=== PATIENT | female | born 1955 | race Two or more races ===

== ENCOUNTER 2020-01-22 19:15 | Emergency (ER) | payer OTHER ==
[~2020-01-22] VITALS: Ht 160 cm; Wt 127.0 kg
[2020-01-22 20:16] LABS: Basophils # (auto) 0 10 ^3/uL (0-0.2); Basophils % (auto) 0.3 % (0.0-2.0); Eosinophils # (auto) 0.1 10 ^3/uL (0-0.8); Eosinophils % (auto) 0.9 % (0.0-7.0); Hematocrit 40.1 % (36.0-46.0); Hemoglobin 13.7 g/dL (12.2-16.2); Lymphocytes # (auto) 1.6 10 ^3/uL (0.4-5.4); Lymphocytes % (auto) 20.6 % (10.0-50.0); Mean Corpuscular Hemoglobin 31.2 pg (28.0-32.0); Mean Corpuscular Hgb Conc. 34.1 g/dL (32.0-36.0); Mean Corpuscular Volume 91.4 fL (80.0-100.0); Monocytes # (auto) 0.5 10 ^3/uL (0-1.3); Neutrophils # (auto) 5.6 10 ^3/uL (1.6-8.6); Neutrophils % (auto) 72.2 % (37.0-80.0); Platelet Count (auto) 151 10^3/uL (140-450); Red Blood Cells 4.39 10^6/uL (4.0-5.20); Red Cell Distribution Width 12.9 % (11.8-14.3); White Blood Cell 7.8 10^3/uL (4.4-10.8)
[2020-01-22 20:30] LABS: Calcium 8.9 mg/dL (8.5-10.1); INR 0.99 (0.9-1.15); Partial Thromboplastin Time 25.1 sec (23.0-31.2); Potassium 3.7 mmol/L (3.5-5.1)
[2020-01-22 20:37] LABS: Albumin 3.5 g/dL (3.4-5.0); BUN/Creatinine Ratio 13.3; Bilirubin, Total 0.6 mg/dL (0.2-1.0); Total Protein 6.7 g/dL (6.4-8.2)
[2020-01-23] MEDS ORDERED: MORPHINE SULFATE 4 MG/ML SYR/VIAL IV ONE (00:15)
[2020-01-23] MEDS ORDERED: ONDANSETRON HCL 4 MG/2 ML VIAL IV ONE (00:15)
[2020-01-23 01:55] VITALS: BP 120/61
== END 2020-01-23 02:37 | disposition short-term general hospital (02) ==
LOC: EDBD 19:15 → ER 19:15
DX: S72.141A Displaced intertrochanteric fracture of right femur, initial encounter for closed fracture (principal); M97.01XA Periprosthetic fracture around internal prosthetic right hip joint, initial encounter; E78.5 Hyperlipidemia, unspecified; I10 Essential (primary) hypertension; Z90.49 Acquired absence of other specified parts of digestive tract; Z91.81 History of falling; Z87.898 Personal history of other specified conditions; Z98.51 Tubal ligation status; W18.39XA Other fall on same level, initial encounter; Y93.89 Activity, other specified; Y92.89 Other specified places as the place of occurrence of the external cause; Y99.8 Other external cause status
CPT/HCPCS: 36415; 71045; 73502; 80053; 85025; 85610; 85730; 93005; 96374; 96375; 99285; J2270; J2405; J7030

== ENCOUNTER 2023-07-27 14:55 | Emergency (ER) | payer OTHER ==
[~2023-07-27] VITALS: Ht 157.5 cm; Wt 81.8 kg
[2023-07-27 16:00] LABS: Basophils # (auto) 0 10 ^3/uL (0-0.2); Basophils % (auto) 0.2 % (0.0-2.0); Eosinophils # (auto) 0 10 ^3/uL (0-0.8); Eosinophils % (auto) 0.2 % (0.0-7.0); Hemoglobin 12.5 g/dL (12.2-16.2); Lymphocytes # (auto) 1.2 10 ^3/uL (0.4-5.4); Lymphocytes % (auto) 7.4 % (10.0-50.0); Mean Corpuscular Hemoglobin 29.6 pg (28.0-32.0); Mean Corpuscular Hgb Conc. 33.8 g/dL (32.0-36.0); Mean Corpuscular Volume 87.5 fL (80.0-100.0); Monocytes % (auto) 6.1 % (0.0-12.0); Neutrophils # (auto) 14.1 10 ^3/uL (1.6-8.6); Neutrophils % (auto) 86.1 % (37.0-80.0); Nucleated Red Blood Cells % 0.1 %; Red Blood Cells 4.23 10^6/uL (4.0-5.20); Red Cell Distribution Width 14.1 % (11.8-14.3); White Blood Cell 16.4 10^3/uL (4.4-10.8)
[2023-07-27 16:18] LABS: INR 1.03 (0.9-1.15); Partial Thromboplastin Time 33.9 SEC (24.5-34.5); Prothrombin Time 10.8 sec (9.3-11.8)
[2023-07-27 16:24] LABS: Alanine Aminotransferase 16 U/L (7-40); Alkaline Phosphatase 94 U/L (46-116); Anion Gap 3 (5-15); Aspartate Aminotransferase 17 U/L (13-40); BUN/Creatinine Ratio 16.7 (10.0-20.0); Bilirubin, Total 0.5 mg/dL (0.2-1.0); Blood Urea Nitrogen 26 mg/dL (9-23); Calcium 9.5 mg/dL (8.7-10.4); Carbon Dioxide 26 mmol/L (20-30); Chloride 108 mmol/L (98-107); Glucose 92 mg/dL (74-106); Potassium 4.7 mmol/L (3.5-5.1); Sodium 137 mmol/L (136-145); Total Protein 6.7 g/dL (5.7-8.2)
[2023-07-27] MEDS ORDERED: AZIT-185 PO (19:34)
[2023-07-27 20:50] VITALS: BP 125/53; PULSE 98; RESP 18; TEMP 98.3; O2SAT 90
== END 2023-07-27 21:01 | disposition hospice, home (50) ==
LOC: EDUNIT# 14:55 → ER 14:55 → EDBD 14:55 → ER 21:01
DX: J98.4 Other disorders of lung (principal); J44.9 Chronic obstructive pulmonary disease, unspecified; I10 Essential (primary) hypertension; E78.5 Hyperlipidemia, unspecified; Z98.51 Tubal ligation status; Z90.710 Acquired absence of both cervix and uterus
CPT/HCPCS: 36415; 71045; 80053; 83880; 84484; 85025; 85610; 85730; 93005

== ENCOUNTER 2023-07-30 15:54 | Emergency (ER) | payer OTHER ==
[~2023-07-30] VITALS: Ht 162.6 cm; Wt 82.0 kg
[~2023-07-30 15:54] MED LIST: AZIT-185 PO
[2023-07-30] MEDS: ALBUTEROL SULF 2.5 MG/0.5ML(0.5%) NEB SOLN NEB ONE (16:47)
[2023-07-30] MEDS: IPRATROPIUM BROM 0.5 MG/2.5ML INH SOL NEB ONE (16:47)
[2023-07-30 17:02] LABS: Basophils # (auto) 0 10 ^3/uL (0-0.2); Basophils % (auto) 0.3 % (0.0-2.0); Eosinophils # (auto) 0 10 ^3/uL (0-0.8); Hemoglobin 12.9 g/dL (12.2-16.2); Lymphocytes % (auto) 5.8 % (10.0-50.0); Mean Corpuscular Hemoglobin 29.4 pg (28.0-32.0); Mean Corpuscular Volume 86.4 fL (80.0-100.0); Monocytes # (auto) 1.2 10 ^3/uL (0-1.3); Monocytes % (auto) 6.8 % (0.0-12.0); Neutrophils # (auto) 15.1 10 ^3/uL (1.6-8.6); Neutrophils % (auto) 87.1 % (37.0-80.0); Nucleated Red Blood Cells % 0.1 %; Red Blood Cells 4.39 10^6/uL (4.0-5.20); Red Cell Distribution Width 13.6 % (11.8-14.3); White Blood Cell 17.3 10^3/uL (4.4-10.8)
[2023-07-30 17:13] LABS: Chloride 103 mmol/L (98-107); Potassium 4.1 mmol/L (3.5-5.1); Sodium 136 mmol/L (136-145)
[2023-07-30 17:15] LABS: Anion Gap 11 (5-15); Calcium 9.3 mg/dL (8.5-10.1); Carbon Dioxide 22 mmol/L (20-30)
[2023-07-30 17:19] LABS: Blood Urea Nitrogen 36 mg/dL (9-23)
[2023-07-30 17:20] LABS: Glucose 116 mg/dL (74-106)
[2023-07-30] MEDS: DexAMETHasone SOD PHOS 10MG/1ML VIAL INJ IM ONE (21:47)
[2023-07-30] MEDS: cefTRIAXone 1GM/50ML D5W 50 ML IV ONE (21:57)
[2023-07-30] MEDS: AZITHROMYCIN 500MG/ 250ML 250 ML IV ONE (22:26)
[2023-07-31 03:04] VITALS: BP 133/59; PULSE 87; RESP 17; TEMP 98.9; O2SAT 95
== END 2023-07-31 03:29 | disposition short-term general hospital (02) ==
LOC: ER 15:54 → EDBD 15:54 → ER 07-31 03:29
DX: J18.9 Pneumonia, unspecified organism (principal); D72.829 Elevated white blood cell count, unspecified; N17.9 Acute kidney failure, unspecified; J44.9 Chronic obstructive pulmonary disease, unspecified; E78.5 Hyperlipidemia, unspecified; I10 Essential (primary) hypertension; Z90.49 Acquired absence of other specified parts of digestive tract; Z98.51 Tubal ligation status
CPT/HCPCS: 36415; 71045; 80048; 83605; 83880; 84484; 85025; 87040; 94640; 96365; 96367; 96372; 99285; J0456; J0696; J1100; J7644

== ENCOUNTER 2024-04-09 17:09 | Inpatient (IN) | payer OTHER ==
[~2024-04-09] VITALS: Ht 157.5 cm; Wt 68.0 kg
[2024-04-09 17:20] VITALS: PULSE 120; RESP 25; O2SAT 91
--- NOTE | 2024-04-09 17:28 | ED.PDOC ---
SOB-HPI HPI Comments HPI: Poor Historian. 68-year-old female presents to emergency department by ambulance from home for evaluation of weakness and respiratory distress. Patient has been having worsening shortness of breath since yesterday. Patient has history of COPD not on home O2. Per EMS, patient initial pulse ox was in the 80s at room air. Patient was slightly tachycardic with a stable blood pressure. Patient was then moved by EMS to be transported and became hypoxic in the 60s. She was placed on a CPAP. She was given a DuoNeb treatment in route. VITALS: T: HR:130 RR: O2: BP:138/72 SOCIAL HX: DENIES TOBACCO USAGE, ETOH CONSUMPTION, OR ILLICIT DRUG USE SHX: DENIES ANY PMHX: LIVER TRANSPLANT, HLD, COPD, Lupus, and GERD ALLERGIES: NKA REVIEW OF SYSTEMS: CONSTITUTIONAL: Denies acute: fever, diaphoresis, chills, HEAD: Denies acute: headache, photophobia Eyes: Denies acute: Double vision, vision loss, eye pain, eye discharge. EARS: Denies acute: tinnitus, hearing loss, ear discharge, ear pain, THROAT: Denies acute: sore throat, swelling, difficulty swallowing , pain with swallowing, change in voice. NECK: Denies acute: neck pain, neck swelling, stiff neck. HEART: Denies acute : chest pain, palpitations, LUNGS: Denies acute: wheezing, cough, hemoptysis ABDOMEN: Denies acute: abdominal pain, Nausea, Vomiting, diarrhea, melena , hematemesis, hematochezia SKIN: Denies acute: rash, redness, lesions, itchiness. EXTREMITIES: Denies acute: calf pain, numbness, tingling, weakness, denies pain in extremity. Denies acute: Low back pain. Neuro: Denies acute: focal neurological deficit, motor or sensory focal neurological deficit, tremors, seizure like activity, confusion, dizziness, change in mental status, loss of bowel or bladder function, cauda equina like symptoms. : Denies acute: dysuria, hematuria, flank pain, increase in urinary frequency. PSYCH: Denies acute: hallucination, suicidal ideation, homicidal ideation. FEMALE: Denies acute: abnormal vaginal bleeding, foul odor, unusual discharge. PHYSICAL EXAM: General: Moderate acute distress, awake and alert. Head: normocephalic, atraumatic. Neck: supple, trachea is midline, no swelling. Throat: Normal phonation. Eyes:, no erythema, no purulent discharge, no proptosis, no icterus. Heart: regular tachycardic, no significant murmur appreciated. Lungs: Qnlx-ve-eviuafpz respiratory distress, Mild bilateral wheezing, right-sided rhonchi, no crackles. No stridors Abdomen: non tender to palpation, non distended, soft, no guarding, no rebound, + bowel sounds. Neuro: Awake, Alert, oriented to name, self, situation, follows commands GCS=15. Speech is normal. Skin: no petechia, no purpura, no cyanosis, non-pale, not jaundice. Lower extremities: --no - Pitting edema no deformity, no focal swelling, no calf TTP. Makes eye contact. moves all four extremities. Face: no apparent facial droop. Chief Complaint: Shortness of Breath Time Seen by MD: 17:24 Primary Care Provider: Unknown Reviewed notes: Nurses Notes, Quality Review Specialist Notes, Medications, Allergies Information Source: Patient, Emergency Med Personnel Mode of Arrival: EMS Severity: Moderate Timing: Days Duration: Since onset Context: At Rest PE Risk Factors: None History of: COPD, None Prehospital treatment: Other (ALBUTEROL, ATROVIN) Modifying Factors: Nothing Associated Signs and Symptoms: Other (WEAKNESS) Was a procedure done? Was a procedure done?: No X-Ray, Labs, Meds, VS Vital Signs Date Time Temp Pulse Resp B/P (MAP) Pulse Ox O2 Delivery O2 Flow Rate FiO2 04/09/24 18:49 122 29 119/50 (73) 92 04/09/24 18:17 122 28 113/47 (69) 95 04/09/24 18:02 121 04/09/24 17:45 98.1 130 18 138/72 (94) 90 04/09/24 17:38 24 98 Nasal Cannula* 2 28 04/09/24 17:20 120 25 91 Nasal Cannula* 4 36 04/09/24 17:18 98.1 120 26 102/34 (56) 92 98.1 Lab Test 04/09/24 18:18 04/09/24 17:39 Range/Units Troponin I High Sensitivity Pending 616 *H </=34 ng/L White Blood Count 29.8 H 4.4-10.8 10^3/uL Red Blood Count 4.57 4.0-5.20 10^6/uL Hemoglobin 13.2 12.2-16.2 g/dL Hematocrit 38.9 36.0-46.0 % Mean Corpuscular Volume 85.1 80.0-100.0 fL Mean Corpuscular Hemoglobin 28.9 28.0-32.0 pg Mean Corpuscular Hemoglobin Concent 34.0 32.0-36.0 g/dL Red Cell Distribution Width 13.6 11.8-14.3 % Platelet Count 178 140-450 10^3/uL Mean Platelet Volume 9.6 6.9-10.8 fL Neutrophils (%) (Auto) 94.1 H 37.0-80.0 % Lymphocytes (%) (Auto) 1.6 L 10.0-50.0 % Monocytes (%) (Auto) 4.3 0.0-12.0 % Eosinophils (%) (Auto) 0.0 0.0-7.0 % Basophils (%) (Auto) 0.0 0.0-2.0 % Neutrophils # (Auto) 28.0 H 1.6-8.6 10 ^3/uL Lymphocytes # (Auto) 0.5 0.4-5.4 10 ^3/uL Monocytes # (Auto) 1.3 0-1.3 10 ^3/uL Eosinophils # (Auto) 0 0-0.8 10 ^3/uL Basophils # (Auto) 0 0-0.2 10 ^3/uL Nucleated Red Blood Cells 0.0 % Sodium Level 135 L 136-145 mmol/L Potassium Level 3.2 L 3.5-5.1 mmol/L Chloride Level 103 98-107 mmol/L Carbon Dioxide Level 21 20-31 mmol/L Anion Gap 11 5-15 Blood Urea Nitrogen 65 H 9-23 mg/dL Creatinine 2.65 H 0.550-1.02 mg/dL Glomerular Filtration Rate Calc 19 >90 mL/min BUN/Creatinine Ratio 24.5 H 10.0-20.0 Serum Glucose 117 H 74-106 mg/dL Lactic Acid Level 1.9 0.4-2.0 mmol/L Calcium Level 9.5 8.7-10.4 mg/dL Magnesium Level 1.7 1.6-2.6 mg/dL Total Bilirubin 0.6 0.2-1.0 mg/dL Aspartate Amino Transferase (AST) 34 13-40 U/L Alanine Aminotransferase (ALT) 26 7-40 U/L Alkaline Phosphatase 96 46-116 U/L B-Type Natriuretic Peptide 236.37 0-100 pg/mL Total Protein 5.9 5.7-8.2 g/dL Albumin 3.1 L 3.2-4.8 g/dL Current Medications Medications (Trade) Dose Ordered Sig/Cuca Route Start Time Stop Time Status Last Admin Albuterol (Ventolin Medneb) 2.5 mg ONCE ONCE NEB 04/09/24 17:30 04/09/24 17:31 DC 04/09/24 17:37 Ipratropium [place] (Atrovent Medneb) 1 mg ONCE ONCE NEB 04/09/24 17:30 04/09/24 17:31 DC 04/09/24 17:38 Methylprednisolone Sodium Succinate (Solu Medrol) 125 mg ONCE ONCE IV 04/09/24 17:30 04/09/24 17:31 DC 04/09/24 18:05 Ceftriaxone Sodium 50 ml @ 100 mls/hr ONCE ONCE IV 04/09/24 17:30 04/09/24 17:59 DC 04/09/24 18:04 [place] [address] Ph: [phone] DIAGNOSTIC IMAGING Diagnostic Imaging Report : [id number] Signed PATIENT: OSKAR DRAPER ACCT: [id number] UNIT: [id number] : 1955 LOC: ER ROOM / BED: / AGE / SEX: 68 / F ADM STATUS: REG ER SERVICE 1722 ORDERING PHYSICIAN: GINO MANRIQUE DO PROCEDURE(s): CXRP - CHEST PORTABLE REASON: sob ORDER NUMBER(s): [id number], ACCESSION NUMBER(s): [id number] EXAM: XY CHEST PORTABLE TECHNIQUE: Single frontal chest radiograph CLINICAL HISTORY: sob COMPARISON: XY CHEST PORTABLE on DOS: 07/30/23, XY CHEST PORTABLE on DOS: 07/27/23, CHEST PORTABLE on DOS: 01/22/20 Findings/Impression: Frontal chest radiograph demonstrates no acute osseous or superficial soft tissue abnormalities. The trachea is midline. Cardiomegaly. Bibasilar atelectasis versus infection, right greater than left. No pneumothorax or pleural effusions. ATED BY: AFSANEH RUSH DO DICTATED DATE/TIME: 04/09/241826 SIGNED BY: AFSANEH RUSH DO SIGNED DATE/TIME: 04/09/241826 CC: Time of 1ST Reevaluation: 17:54 Reevaluation 1ST: Unchanged Time of 2ND Reevaluation: 19:12 (The case was discussed with the [facility] admitting team (HPI, physical exam, labs and diagnostic tests that were available at the time of disposition, ED course, treatment plan) on the phone. They they authorized us to admit the patient in our facility since the patient is tachycardic with an NSTEMI. Authorization number is [id number] Dr. Gonzalez. I also was able to get additional past medical history on this patient. She has history of CRESPO status post transplant 2010, COPD, asthma, interstitial lung disease, diastolic CHF, chronic kidney disease stage IIIB, crest syndrome, pulmonary hypertension, she is on Prograf. Earlier I ordered aspirin for the patient given her elevated troponin but she refused it saying that she has a liver transplant and she was told not to take aspirin.) Reevaluation 2ND: Improved Patient Education/Counseling: Diagnosis, Treatment Family Education/Counseling: No Family Present Comments Patient presented with SOB . Patient was found with the above mentioned diagnosis. the following medications were ordered: ALBUTEROL, ATROVENT, ROCEPHIN, DEPO- MEDRO the following tests were ordered: LABS, CXR, EKG X3 Patient ED course and VS have been stabilized. Patient has been reassessed in the ED and remained in a stable condition. Pertinent incidental findings were discussed with the patient and/or family. Patient/family voices understanding and is agreeable with plan. Patient has been observed in the ED adequate length of time to insure improvement/stability. Escalation of care considered: Consideration of escalation to observation or admission Patient was ADMITTED to the medicine team for further evaluation and treatment of their presentation. Patient was discharged. All the reports of any imaging studies that were ordered by myself were reviewed by myself. Departure 1 Departure Time of Disposition: 18:21 Impression: Primary Impression: Acute respiratory distress Additional Impressions: Pneumonia Leukocytosis Atrial fibrillation with RVR NSTEMI (non-ST elevated myocardial infarction) Disposition: ADMITTED INPATIENT Admit to: Tele Condition: Guarded Additional Instructions: [address] [address] Ph: [phone] DIAGNOSTIC IMAGING Diagnostic Imaging Report : [id number] Signed PATIENT: OSKAR DRAPER ACCT: [id number] UNIT: [id number] : 1955 LOC: ER ROOM / BED: / AGE / SEX: 68 / F ADM STATUS: REG ER SERVICE 172 ORDERING PHYSICIAN: GINO MANRIQUE DO PROCEDURE(s): CXRP - CHEST PORTABLE REASON: sob ORDER NUMBER(s): [id number], ACCESSION NUMBER(s): [id number] EXAM: XY CHEST PORTABLE TECHNIQUE: Single frontal chest radiograph CLINICAL HISTORY: sob COMPARISON: XY CHEST PORTABLE on DOS: 07/30/23, XY CHEST PORTABLE on DOS: 07/27/23, CHEST PORTABLE on DOS: 01/22/20 Findings/Impression: Frontal chest radiograph demonstrates no acute osseous or superficial soft tissue abnormalities. The trachea is midline. Cardiomegaly. Bibasilar atelectasis versus infection, right greater than left. No pneumothorax or pleural effusions. ATED BY: AFSANEH RUSH DO DICTATED DATE/TIME: 04/09/241826 SIGNED BY: AFSANEH RUSH DO SIGNED DATE/TIME: 04/09/241826 CC: Discharged With: Self Critical Care Note Critical Care Time?: No Heart Score Heart Score: Heart Score Response (Comments) Value History N/A 0 EKG N/A 0 Age N/A 0 Risk Factors N/A 0 Troponin N/A 0 Total 0 I personally scribed for GINO MANRIQUE DO ([email or web address]) on 04/09/24 at 17:28. Electronically submitted by Carolina Tavarez ([email or web address]). I personally scribed for GINO MANRIQUE DO ([email or web address]) on 04/09/24 at 18:58. Electronically submitted by Carolina Tavarez ([email or web address]). I personally scribed for GINO MANRIQUE DO ([email or web address]) on 04/09/24 at 19:03. Electronically submitted by Carolina Tavarez ([email or web address]). I personally scribed for GINO MANRIQUE DO ([email or web address]) on 04/09/24 at 19:07. Electronically submitted by Carolina Tavarez ([email or web address]). GINO MANRIQUE DO Apr 09, 2024 17:28
[2024-04-09] MEDS: ALBUTEROL SULF 2.5 MG/0.5ML(0.5%) NEB SOLN NEB ONE (17:37)
[2024-04-09] MEDS: IPRATROPIUM BROM 0.5 MG/2.5ML INH SOL NEB ONE (17:38)
[2024-04-09] MEDS: cefTRIAXone 1GM/50ML D5W 50 ML IV ONE (18:04)
[2024-04-09 18:05] LABS: Basophils # (auto) 0 10 ^3/uL (0-0.2); Eosinophils # (auto) 0 10 ^3/uL (0-0.8); Hematocrit 38.9 % (36.0-46.0); Hemoglobin 13.2 g/dL (12.2-16.2); Lymphocytes # (auto) 0.5 10 ^3/uL (0.4-5.4); Lymphocytes % (auto) 1.6 % (10.0-50.0); Mean Corpuscular Hemoglobin 28.9 pg (28.0-32.0); Mean Corpuscular Volume 85.1 fL (80.0-100.0); Monocytes # (auto) 1.3 10 ^3/uL (0-1.3); Monocytes % (auto) 4.3 % (0.0-12.0); Neutrophils % (auto) 94.1 % (37.0-80.0); Platelet Count (auto) 178 10^3/uL (140-450); Red Blood Cells 4.57 10^6/uL (4.0-5.20); Red Cell Distribution Width 13.6 % (11.8-14.3); White Blood Cell 29.8 10^3/uL (4.4-10.8)
[2024-04-09] MEDS: methylPREDNISolone SOD SUCC 125 MG/2 ML VL IV ONE (18:05)
[2024-04-09 18:21] LABS: Alanine Aminotransferase 26 U/L (7-40); Alkaline Phosphatase 96 U/L (46-116); Anion Gap 11 (5-15); Aspartate Aminotransferase 34 U/L (13-40); BUN/Creatinine Ratio 24.5 (10.0-20.0); Bilirubin, Total 0.6 mg/dL (0.2-1.0); Calcium 9.5 mg/dL (8.7-10.4); Carbon Dioxide 21 mmol/L (20-31); Chloride 103 mmol/L (98-107); Magnesium 1.7 mg/dL (1.6-2.6); Total Protein 5.9 g/dL (5.7-8.2)
[2024-04-09 18:22] LABS: Albumin 3.1 g/dL (3.2-4.8); Blood Urea Nitrogen 65 mg/dL (9-23); Glucose 117 mg/dL (74-106); Potassium 3.2 mmol/L (3.5-5.1); Sodium 135 mmol/L (136-145)
--- NOTE | 2024-04-09 18:30 | DVH ---
EXAM: XY CHEST PORTABLE TECHNIQUE: Single frontal chest radiograph CLINICAL HISTORY: sob COMPARISON: XY CHEST PORTABLE on DOS: 07/30/23, XY CHEST PORTABLE on DOS: 07/27/23, CHEST PORTABLE on D OS: 01/22/20 Findings/Impression: Frontal chest radiograph demonstrates no acute osseous or superficial soft tissue abnormalities. The trachea is midline. Cardiomegaly. Bibasilar atelectasis versus infection, right greater than left. No pneumothorax or pleural effusions.
--- NOTE | 2024-04-09 18:55 | ECG ---
[facility] Test Date: 2024-04-09 Test Time: 18:02:05 Pat Name: OSKAR DRAPER Department: ER Room: Gender: F Gatehouse Attendant: RADHA : 1955 Requested By: GINO MANRIQUE Order Number: [id number] Reading MD: Measurements Intervals [place] Rate: 121 P: 0 UT: 0 QRS: 96 QRSD: 90 T: -36 QT: 316 QTc: 449 Interpretive Statements Atrial fibrillation Right axis deviation Abnormal T, consider ischemia, inferior leads Please click the below link to view image of tracing.
--- NOTE | 2024-04-09 18:55 | ECG ---
[facility] Test Date: 2024-04-09 Test Time: 18:00:52 Pat Name: OSKAR DRAPER Department: ER Room: Gender: F Loan Inspector: RADHA : 1955 Requested By: GINO MANRIQUE Order Number: [id number] Reading MD: Measurements Intervals [place] Rate: 122 P: 0 TN: 0 QRS: 102 QRSD: 95 T: -37 QT: 315 QTc: 449 Interpretive Statements Atrial flutter Ventricular premature complex Lateral infarct, acute (LAD) Baseline wander in lead(s) V1 Please click the below link to view image of tracing.
[2024-04-09 19:40] VITALS: O2SAT 92
[2024-04-09] MEDS ORDERED: HYDROcodone-ACET 5/325MG TAB PO PRN (20:00)
[2024-04-09] MEDS ORDERED: ACETAMINOPHEN 325 MG TAB PO PRN (20:00)
[2024-04-09] MEDS ORDERED: DOCUSATE SOD 100 MG CAP PO PRN (20:00)
[2024-04-09] MEDS: AZITHROMYCIN 500MG/ 250ML 250 ML IV ONE (20:00)
[2024-04-09] MEDS: POTASSIUM CHL 20 Meq TABLET PO ONE (20:00)
[2024-04-09 20:08] VITALS: BP 119/50; PULSE 122; RESP 29; TEMP 98.1; O2SAT 92
[2024-04-09 20:12] VITALS: O2SAT 92
[2024-04-09] MEDS: HEPARIN SODIUM (PORCINE) 5000 UNITS/ML 1ML VIAL SC SCH (22:00)
[2024-04-09] MEDS: TACROLIMUS 1 MG CAP PO SCH (22:00)
[2024-04-09] MEDS: FAMOTIDINE (10MG/ML) 2ML VL IV SCH (22:00)
[2024-04-09] MEDS: SODIUM CHLOR 0.9% PF (SALINE LOCK) 10ML VIAL/SYR IV SCH (22:00)
[2024-04-09] MEDS: methylPREDNISolone SOD SUCC 40 MG/ML VL IV SCH (22:00)
--- NOTE | 2024-04-09 22:29 | DVHHP2 ---
History of Present Illness Reason for Visit: COPD with acute exacerbation History of Present Illness The patient is a 68-year-old female with past medical history of hyperlipidemia, COPD, lupus, GERD, and liver transplant currently on Prograf presented to [facility] ED with complaint of shortness of breaths. Patient reports symptoms progressively get worse with generalized weakness, hypoxic with O2 saturation in the 60s, tachypneic, getting worse that EMS were called. When EMS arrived on the scene, patient was placed on CPAP EN route to our facility ED. patient was seen and evaluated in the ED, laboratory data shows WBC 29.8, platelets 178, sodium 135, potassium 3.2, BUN 65, creatinine 2.65, GFR 19, glucose 117, lactic acid 1.9, BNP 236.37, troponin 588, albumin 3.1, blood pressure 102/63, heart rate 102, temperature 98.1 F, O2 saturation 98% on oxygen. Chest x-ray revealing bibasilar atelectasis versus infection, right greater than left, cardiomegaly, no pneumothorax or pleural effusions. Patient was started on IV antibiotic regimen azithromycin, please see medication orders section in the computer. On my assessment, patient denied chest pain, no headache, no dizziness, no diaphoresis, currently on oxygen, no diarrhea, no nausea, no vomiting, no fever, no chills. Patient was admitted for further evaluation and medical management. Past Medical History HLD, COPD, Lupus, and GERD Past Surgical History Liver transplant Family History Reviewed, noncontributory to the management of this case. Past Social History The patient lives at home, denies smoking, alcohol or illicit drugs abuse. Review of Systems Constitutional: Yes: Weakness; No: Fever, Chills, Sweats, Malaise, Other Eyes: No: Pain, Vision change, Conjunctivae inflammation, Eyelid inflammation, Other, Redness ENT: No: Ear pain, Ear discharge, Nose pain, Nose discharge, Nose congestion, Mouth pain, Mouth swelling, Throat pain, Throat swelling, Other Respiratory: Shortness of breath, SOB with excertion, Other (SOB at rest); No: Cough, Dry, Wheezing, Hemoptysis, Pleuritic Pain, Sputum, Wheezing Cardiovascular: No: Chest Pain, Palpitations, Orthopnea, Paroxysmal Noc. Dyspnea, Edema, Lt Headedness, Other Gastrointestinal: No: Nausea, Vomiting, Abdominal Pain, Diarrhea, Constipation, Melena, Hematochezia, Other Genitourinary: No Dysuria, No Frequency, No Incontinence, No Hematuria, No Retention, No Other Musculoskeletal: No: other, neck pain, shoulder pain, arm pain, back pain, hand pain, leg pain, foot pain Skin: No: Rash, Lesions, Jaundice, Bruising, Other Neurological: No: Weakness, Numbness, Incoordination, Change in speech, Confusion, Seizures, Other Allergies: Coded Allergies: NO KNOWN ALLERGIES (Unverified , 01/22/20) Medications Current Medications Medications Dose Ordered Sig/Cuca Route Start Time Stop Time Status Last Admin Dose Admin Ceftriaxone Sodium 50 ml @ 100 mls/hr DAILY@09 IV 04/10/24 09:00 Azithromycin 250 ml @ 125 mls/hr DAILY IV 04/10/24 10:00 Levalbuterol HCl 0.625 mg Q6HR NEB 04/10/24 00:00 Ipratropium [place] 0.5 mg Q4HPRN PRN NEB 04/09/24 20:00 Methylprednisolone Sodium Succinate 40 mg Q8HR IV 04/09/24 22:00 Famotidine 20 mg Q12HR IV 04/09/24 22:00 Tacrolimus 1 mg BID PO 04/09/24 22:00 Heparin Sodium (Porcine) 5,000 units Q12HR SC 04/09/24 22:00 Sodium Chloride 10 ml Q8HR IV 04/09/24 22:00 Acetaminophen/ Hydrocodone Bitart 1 tab Q4HP PRN PO 04/09/24 20:00 Ondansetron HCl 4 mg Q4HP PRN IV 04/09/24 20:00 Docusate Sodium 100 mg BIDPRN PRN PO 04/09/24 20:00 Acetaminophen 650 mg Q6HP PRN PO 04/09/24 20:00 Exam Vital Signs Vital Signs Date Time Temp Pulse Resp B/P (MAP) Pulse Ox O2 Delivery O2 Flow Rate FiO2 04/09/24 20:12 92 Nasal Cannula* 2 28 04/09/24 20:08 98.1 122 29 119/50 98.1 General Appearance: Alert, Oriented X3, Cooperative, No acute distress HEENT: Atraumatic, PERRLA, EOMI, Mucous membr. moist/pink Respiratory: Normal air movement, Other (Diminished breath sounds) Cardiovascular: Regular rate, Normal S1, Normal S2, No murmurs Abdominal: Normal bowel sounds, Soft, No tenderness, No hepatospenomegaly, No masses Extremities: No clubbing, No cyanosis, No edema, Normal pulses, No tenderness/swelling Skin: No rashes, No breakdown, No significant lesion Neuro: Normal speech, Normal tone, Sensation intact, Cranial nerves 3-12 NL, Reflexes 2+, Other (Generalized weakness) Psych/Mental Status: Mental status NL, Mood NL Labs/Xrays Labs Test 04/09/24 20:31 04/09/24 17:39 Range/Units Troponin I High Sensitivity 488 *H </=34 ng/L White Blood Count 29.8 H 4.4-10.8 10^3/uL Red Blood Count 4.57 4.0-5.20 10^6/uL Hemoglobin 13.2 12.2-16.2 g/dL Hematocrit 38.9 36.0-46.0 % Mean Corpuscular Volume 85.1 80.0-100.0 fL Mean Corpuscular Hemoglobin 28.9 28.0-32.0 pg Mean Corpuscular Hemoglobin Concent 34.0 32.0-36.0 g/dL Red Cell Distribution Width 13.6 11.8-14.3 % Platelet Count 178 140-450 10^3/uL Mean Platelet Volume 9.6 6.9-10.8 fL Neutrophils (%) (Auto) 94.1 H 37.0-80.0 % Lymphocytes (%) (Auto) 1.6 L 10.0-50.0 % Monocytes (%) (Auto) 4.3 0.0-12.0 % Eosinophils (%) (Auto) 0.0 0.0-7.0 % Basophils (%) (Auto) 0.0 0.0-2.0 % Neutrophils # (Auto) 28.0 H 1.6-8.6 10 ^3/uL Lymphocytes # (Auto) 0.5 0.4-5.4 10 ^3/uL Monocytes # (Auto) 1.3 0-1.3 10 ^3/uL Eosinophils # (Auto) 0 0-0.8 10 ^3/uL Basophils # (Auto) 0 0-0.2 10 ^3/uL Nucleated Red Blood Cells 0.0 % Sodium Level 135 L 136-145 mmol/L Potassium Level 3.2 L 3.5-5.1 mmol/L Chloride Level 103 98-107 mmol/L Carbon Dioxide Level 21 20-31 mmol/L Anion Gap 11 5-15 Blood Urea Nitrogen 65 H 9-23 mg/dL Creatinine 2.65 H 0.550-1.02 mg/dL Glomerular Filtration Rate Calc 19 >90 mL/min BUN/Creatinine Ratio 24.5 H 10.0-20.0 Serum Glucose 117 H 74-106 mg/dL Lactic Acid Level 1.9 0.4-2.0 mmol/L Calcium Level 9.5 8.7-10.4 mg/dL Magnesium Level 1.7 1.6-2.6 mg/dL Total Bilirubin 0.6 0.2-1.0 mg/dL Aspartate Amino Transferase (AST) 34 13-40 U/L Alanine Aminotransferase (ALT) 26 7-40 U/L Alkaline Phosphatase 96 46-116 U/L B-Type Natriuretic Peptide 236.37 0-100 pg/mL Total Protein 5.9 5.7-8.2 g/dL Albumin 3.1 L 3.2-4.8 g/dL PATIENT: OSKAR DRAPER ACCT: [id number] UNIT: [id number] : 1955 LOC: ER ROOM / BED: / AGE / SEX: 68 / F ADM STATUS: REG ER SERVICE 1722 ORDERING PHYSICIAN: GINO MANRIQUE DO PROCEDURE(s): CXRP - CHEST PORTABLE REASON: sob ORDER NUMBER(s): [id number], ACCESSION NUMBER(s): [id number] EXAM: XY CHEST PORTABLE TECHNIQUE: Single frontal chest radiograph CLINICAL HISTORY: sob COMPARISON: XY CHEST PORTABLE on DOS: 07/30/23, XY CHEST PORTABLE on DOS: 07/27/23, CHEST PORTABLE on DOS: 01/22/20 Findings/Impression: Frontal chest radiograph demonstrates no acute osseous or superficial soft tissue abnormalities. The trachea is midline. Cardiomegaly. Bibasilar atelectasis versus infection, right greater than left. No pneumothorax or pleural effusions. Assessment/Plan Assessment/Plan COPD with acute exacerbation Acute respiratory distress Pneumonia, unspecified organism Leukocytosis, unspecified Atrial fibrillation with RVR Generalized weakness Acute on chronic renal failure NSTEMI (non-ST elevated myocardial infarction) Plan 1. Admit to telemetry unit 2. Breathing treatment 3. Pain control management 4. IV antibiotic management 5. Management of fluids and electrolytes 6. Consultation for Cardiology/pulmonology 7. Diagnostic test chest x-ray 8. DVT prophylaxis-on heparin 9. Repeat labs CBC, CMP in a.m. 10. Home medication reviewed and reconciled 11. Continue with current medical management 12. Treatment plan discussed with patient and RN. Patient verbalized understanding. Plan discussed with: Patient, Other (RN) My Orders Orders - BERNIE DYE DNP Procedure Category Date Status Time Ceftriaxone 1gm/50ml PHA 04/10/24 In Process D5w (Rocephin) 09:00 Azithromycin 500mg/ PHA 04/10/24 In Process 250ml (Zithromax 50 10:00 Levalbuterol Hcl PHA 04/10/24 In Process (Xopenex Medneb) 00:00 Ipratropium Medneb PHA 04/09/24 In Process (Atrovent Medneb) 20:00 Methylprednisolone PHA 04/09/24 In Process Sod Succ (Solu Medrol 22:00 Famotidine Injection PHA 04/09/24 In Process (Pepcid Injection) 22:00 *Consult CONS 04/09/24 Transmitted / 19:46 Tacrolimus (Prograf) PHA 04/09/24 In Process 22:00 Heparin Sodium PHA 04/09/24 In Process (Porcine) 22:00 *Dr. [facility] CONS 04/09/24 Transmitted -[place] 19:46 * Cardiology Consult CONS 04/09/24 Transmitted 19:46 Troponin-I Hs LAB 04/09/24 Logged 22:46 Troponin-I Hs LAB 04/10/24 Verified 04:00 Allergies JOSI 04/09/24 In Process 19:46 Code Status CODE 04/09/24 Transmitted 19:46 Sodium Chloride Lock PHA 04/09/24 In Process (Saline Lock Ns) 22:00 Oxygen Per Hour RT 04/09/24 Transmitted 19:46 Hydrocodone-Acet PHA 04/09/24 In Process 5/325mg Tab ([place] 20:00 Ondansetron Hcl PHA 04/09/24 In Process (Zofran) 20:00 Docusate Sodium PHA 04/09/24 In Process Capsule ([place] 20:00 Fall Risk Precautions JOSI 04/09/[address] 19:46 Complete Blood Count LAB 04/10/24 Verified 04:00 Comprehensive LAB 04/10/24 Verified Metabolic Panel 04:00 Cardiac DIET 04/10/24 Transmitted Diet-2gna,Lofat,Lochol Breakfast Echo 2d Mode Cardiac US 04/09/24 Logged DOP 19:46 Condition: Serious JOSI 04/09/24 In Process 19:46 Acetaminophen Tablet PHA 04/09/24 In Process (Tylenol Tablet) 20:00 Sequential JOSI 04/09/24 In Process Compression Device Admit ADMIT 04/09/24 Verified 22:28 Nitroglycerin [facility] 04/09/24 Verified Sublingual (Ntrostat 22:30 Morphine Sulfate [facility] 04/09/24 Verified Injection 22:30 Notify Of Changes [facility] 04/09/24 Verified From Base 22:28 Credit Analysis Manager For [facility] 04/09/24 Verified 24 Hours 22:28 Emergency Dysrhythmia [facility] 04/09/24 Verified Protocol 22:28 Rhythm Strips Once [facility] 04/09/24 Verified Every Shift 22:28 Oxygen By Nasal RT 04/09/24 Verified Cannula 22:28 Problem List: (1) COPD with acute exacerbation (2) Pneumonia, unspecified organism (3) Leukocytosis, unspecified (4) Atrial fibrillation with RVR (5) Acute respiratory distress (6) NSTEMI (non-ST elevated myocardial infarction) (7) Generalized weakness (8) Acute on chronic renal failure Date of Service: Apr 09, 2024 Billing Provider: BERNIE DYE DNP Common Visit Codes: [id number] INP/OBS CARE (HIGH) BERNIE DYE DNP Apr 09, 2024 22:29
[2024-04-09] MEDS ORDERED: NITROGLYCERIN 0.4 MG SL TAB SL PRN (22:30)
[2024-04-09] MEDS: MORPHINE SULFATE INJ 2 MG/ml SYRG IV PRN (23:25)
[2024-04-09] MEDS: ONDANSETRON HCL 4 MG/2 ML VIAL IV PRN (23:26)
[2024-04-09 23:42] VITALS: PULSE 112; RESP 16; O2SAT 96
[2024-04-09] MEDS: IPRATROPIUM BROM 0.5 MG/2.5ML INH SOL NEB PRN (23:46)
[2024-04-09] MEDS: LEVALBUTEROL HCL 1.25 MG/3 ML NEB NEB SCH (23:46)
[2024-04-09 23:52] VITALS: PULSE 110; RESP 16; O2SAT 100
[2024-04-09] MEDS: TACROLIMUS 1 MG CAP PO ONE (23:56)
[2024-04-09] MEDS: TACROLIMUS 0.5 MG CAP PO ONE (23:56)
[2024-04-10 04:50] LABS: Hematocrit 36.3 % (36.0-46.0); Hemoglobin 12.4 g/dL (12.2-16.2); Mean Corpuscular Hemoglobin 29.1 pg (28.0-32.0); Mean Corpuscular Hgb Conc. 34.2 g/dL (32.0-36.0); Mean Corpuscular Volume 85.3 fL (80.0-100.0); Platelet Count (auto) 158 10^3/uL (140-450); Red Blood Cells 4.26 10^6/uL (4.0-5.20); Red Cell Distribution Width 13.8 % (11.8-14.3); White Blood Cell 21.6 10^3/uL (4.4-10.8)
[2024-04-10 05:01] LABS: Basophils % (manual) 0 (0.0-2.0); Blast Cells 0; Eosinophils % (manual) 0 (0-7); Metamyelocytes % 0; Monocytes % (manual) 0 (0-12); Myelocytes % 0; Promyelocytes % 0; Reactive Lymphocytes 0
[2024-04-10 05:08] LABS: Alanine Aminotransferase 26 U/L (7-40); Albumin 3.3 g/dL (3.2-4.8); Alkaline Phosphatase 106 U/L (46-116); Anion Gap 10 (5-15); Aspartate Aminotransferase 36 U/L (13-40); BUN/Creatinine Ratio 26.3 (10.0-20.0); Bilirubin, Total 0.4 mg/dL (0.2-1.0); Calcium 10.2 mg/dL (8.7-10.4); Carbon Dioxide 22 mmol/L (20-31); Chloride 102 mmol/L (98-107); Potassium 3.6 mmol/L (3.5-5.1); Total Protein 6.6 g/dL (5.7-8.2)
[2024-04-10 05:12] LABS: Blood Urea Nitrogen 66 mg/dL (9-23); Glucose 161 mg/dL (74-106); Sodium 134 mmol/L (136-145)
[2024-04-10 06:16] LABS: Band Neutrophils % (manual) 23; Lymphocytes % (manual) 3 (10.0-50.0); Platelet Estimate Adequate; RBC Morphology Normal
[2024-04-10 06:22] VITALS: PULSE 99; RESP 19; O2SAT 97
[2024-04-10 06:30] VITALS: PULSE 102; RESP 16; O2SAT 100
--- NOTE | 2024-04-10 08:12 | DVHINCON2 ---
Date of service: Apr 10, 2024 Reason for Consultation Acute kidney injury History of Present Illness 68-year-old female past medical history of COPD and liver transplant on immunosuppression presents to the hospital complaining of progressive shortness of breath, fevers, chills, and productive sputum. Nephrology consulted due to elevated creatinine level. Patient denies any previous history of kidney disease Allergies: Coded Allergies: NO KNOWN ALLERGIES (Unverified , 01/22/20) Home Meds Active Scripts Azithromycin (ZITHROMAX TABLET) 250 Mg Tb, 500 MG PO BID for 7 Days, #28 TAB Prov:ALICIA BARRY MD 07/27/23 Current Medications Current Medications Medications (Trade) Dose Ordered Sig/Cuca Route PRN Reason Start Time Stop Time Status Last Admin Ceftriaxone Sodium 50 ml @ 100 mls/hr DAILY@09 IV 04/10/24 09:00 Azithromycin 250 ml @ 125 mls/hr DAILY IV 04/10/24 10:00 Levalbuterol HCl (Xopenex Medneb) 0.625 mg Q6HR NEB 04/10/24 00:00 04/10/24 06:22 Ipratropium [place] (Atrovent Medneb) 0.5 mg Q4HPRN PRN NEB SHORTNESS OF BREATH 04/09/24 20:00 04/10/24 06:22 Methylprednisolone Sodium Succinate (Solu Medrol) 40 mg Q8HR IV 04/09/24 22:00 04/10/24 06:00 Famotidine (Pepcid Injection) 20 mg Q12HR IV 04/09/24 22:00 04/09/24 22:00 Tacrolimus (Prograf) 1 mg BID PO 04/09/24 22:00 Heparin Sodium (Porcine) 5,000 units Q12HR SC 04/09/24 22:00 04/09/24 22:00 Sodium Chloride (Saline Lock Ns) 10 ml Q8HR IV 04/09/24 22:00 04/10/24 06:00 Acetaminophen/ Hydrocodone Bitart ([place] 5/325MG Tab) 1 tab Q4HP PRN PO MODERATE PAIN (4-6 PAIN SCALE) 04/09/24 20:00 Ondansetron HCl (Zofran) 4 mg Q4HP PRN IV NAUSEA / VOMITING 04/09/24 20:00 04/09/24 23:26 Docusate Sodium (Colace Capsule) 100 mg BIDPRN PRN PO FOR CONSTIPATION 04/09/24 20:00 Acetaminophen (Tylenol Tablet) 650 mg Q6HP PRN PO PAIN SCALE 1-3 OR TEMP>100.4 04/09/24 20:00 Nitroglycerin (Ntrostat Sublingual) 0.4 mg Q5MINP PRN SL FOR CHEST PAIN 04/09/24 22:30 Morphine Sulfate 2 mg Q30M PRN IV FOR CHEST PAIN 04/09/24 22:30 04/09/24 23:25 Sodium Chloride 1,000 ml @ 75 mls/hr [id number] IV 04/10/24 09:45 Review of Systems Shortness of breath, cough, sputum H&P Exam Vital Signs/I&O Vital Sign Date Time Temp Pulse Resp B/P (MAP) Pulse Ox O2 Delivery O2 Flow Rate FiO2 04/10/24 09:56 93 16 95/45 (62) 93 04/10/24 08:54 Nasal Cannula* 2 28 04/09/24 20:08 98.1 98.1 Intake and Output 04/09/24 04/10/24 19:00 07:00 Intake Total 50 ml 250 ml Balance 50 ml 250 ml Intake IV Total 50 ml 250 ml Physical Exam Elderly female Appears in distress complaining of illness and rigors Abdomen is soft No pitting edema Decreased muscle tone Expiratory wheezes Labs/Diagnostic Data Labs/Diagnostic Data Laboratory Tests Test 04/10/24 04:20 04/09/24 22:40 04/09/24 20:31 04/09/24 18:18 Range/Units White Blood Count 21.6 #H 4.4-10.8 10^3/uL Red Blood Count 4.26 4.0-5.20 10^6/uL Hemoglobin 12.4 12.2-16.2 g/dL Hematocrit 36.3 36.0-46.0 % Mean Corpuscular Volume 85.3 80.0-100.0 fL Mean Corpuscular Hemoglobin 29.1 28.0-32.0 pg Mean Corpuscular Hemoglobin Concent 34.2 32.0-36.0 g/dL Red Cell Distribution Width 13.8 11.8-14.3 % Platelet Count 158 140-450 10^3/uL Mean Platelet Volume 9.6 6.9-10.8 fL Neutrophils (%) (Auto) 37.0-80.0 % Lymphocytes (%) (Auto) 10.0-50.0 % Monocytes (%) (Auto) 0.0-12.0 % Basophils (%) (Auto) 0.0-2.0 % Neutrophils # (Auto) 1.6-8.6 10 ^3/uL Lymphocytes # (Auto) 0.4-5.4 10 ^3/uL Monocytes # (Auto) 0-1.3 10 ^3/uL Differential Total Cells Counted 100.0 100 Neutrophils % (Manual) 74 37.0-80.0 Band Neutrophils % (Manual) 23 Lymphocytes % (Manual) 3 L 10.0-50.0 Monocytes % (Manual) 0 0-12 Eosinophils % (Manual) 0 0-7 Basophils % (Manual) 0 0.0-2.0 Metamyelocytes % (manual) 0 Myelocytes % (Manual) 0 Promyelocytes % (Manual) 0 Blast Cells % (Manual) 0 Reactive Lymphocytes 0 Platelet Estimate Adequate Red Blood Cell Morphology Normal Sodium Level 134 L 136-145 mmol/L Potassium Level 3.6 3.5-5.1 mmol/L Chloride Level 102 98-107 mmol/L Carbon Dioxide Level 22 20-31 mmol/L Anion Gap 10 5-15 Blood Urea Nitrogen 66 H 9-23 mg/dL Creatinine 2.51 H 0.550-1.02 mg/dL Glomerular Filtration Rate Calc 20 >90 mL/min BUN/Creatinine Ratio 26.3 H 10.0-20.0 Serum Glucose 161 H 74-106 mg/dL Calcium Level 10.2 8.7-10.4 mg/dL Total Bilirubin 0.4 0.2-1.0 mg/dL Aspartate Amino Transferase (AST) 36 13-40 U/L Alanine Aminotransferase (ALT) 26 7-40 U/L Alkaline Phosphatase 106 46-116 U/L Troponin I High Sensitivity 367 *H 490 *H 488 *H 588 *H </=34 ng/L Total Protein 6.6 5.7-8.2 g/dL Albumin 3.3 3.2-4.8 g/dL Test 04/09/24 17:39 Range/Units White Blood Count 29.8 H 4.4-10.8 10^3/uL Red Blood Count 4.57 4.0-5.20 10^6/uL Hemoglobin 13.2 12.2-16.2 g/dL Hematocrit 38.9 36.0-46.0 % Mean Corpuscular Volume 85.1 80.0-100.0 fL Mean Corpuscular Hemoglobin 28.9 28.0-32.0 pg Mean Corpuscular Hemoglobin Concent 34.0 32.0-36.0 g/dL Red Cell Distribution Width 13.6 11.8-14.3 % Platelet Count 178 140-450 10^3/uL Mean Platelet Volume 9.6 6.9-10.8 fL Neutrophils (%) (Auto) 94.1 H 37.0-80.0 % Lymphocytes (%) (Auto) 1.6 L 10.0-50.0 % Monocytes (%) (Auto) 4.3 0.0-12.0 % Eosinophils (%) (Auto) 0.0 0.0-7.0 % Basophils (%) (Auto) 0.0 0.0-2.0 % Neutrophils # (Auto) 28.0 H 1.6-8.6 10 ^3/uL Lymphocytes # (Auto) 0.5 0.4-5.4 10 ^3/uL Monocytes # (Auto) 1.3 0-1.3 10 ^3/uL Eosinophils # (Auto) 0 0-0.8 10 ^3/uL Basophils # (Auto) 0 0-0.2 10 ^3/uL Nucleated Red Blood Cells 0.0 % Sodium Level 135 L 136-145 mmol/L Potassium Level 3.2 L 3.5-5.1 mmol/L Chloride Level 103 98-107 mmol/L Carbon Dioxide Level 21 20-31 mmol/L Anion Gap 11 5-15 Blood Urea Nitrogen 65 H 9-23 mg/dL Creatinine 2.65 H 0.550-1.02 mg/dL Glomerular Filtration Rate Calc 19 >90 mL/min BUN/Creatinine Ratio 24.5 H 10.0-20.0 Serum Glucose 117 H 74-106 mg/dL Lactic Acid Level 1.9 0.4-2.0 mmol/L Calcium Level 9.5 8.7-10.4 mg/dL Magnesium Level 1.7 1.6-2.6 mg/dL Total Bilirubin 0.6 0.2-1.0 mg/dL Aspartate Amino Transferase (AST) 34 13-40 U/L Alanine Aminotransferase (ALT) 26 7-40 U/L Alkaline Phosphatase 96 46-116 U/L Troponin I High Sensitivity 616 *H </=34 ng/L B-Type Natriuretic Peptide 236.37 0-100 pg/mL Total Protein 5.9 5.7-8.2 g/dL Albumin 3.1 L 3.2-4.8 g/dL Assessment Acute kidney injury hemodynamically mediated ckd 3b (GFR 30s in 07/2023) sepsis PNA COPD exacerbation History of liver transplantation on tacrolimus Clinically patient appears to be volume depleted Recommend IV fluid hydration Nebulizer treatments due to COPD IV antibiotics Patient resumed on home tacrolimus dose recommend trough level tomorrow a.m. Avoid hypotension Avoid nonsteroidal anti-inflammatory drugs Avoid contrast agents Send ordered urinalysis Plan discussed with: Patient MITZI RUIZ MD Apr 10, 2024 08:12
[2024-04-10 08:54] VITALS: PULSE 100; RESP 14; O2SAT 96
[2024-04-10] MEDS ORDERED: cefTRIAXone 1GM/50ML D5W 50 ML IV SCH (09:00)
--- NOTE | 2024-04-10 09:31 | DVHPNRES ---
Progress Note Date Seen: Apr 10, 2024 Resident Creating Document: JUDE WATSON RESIDENT Has the PT tested + for MRSA If YES, has PT been informed?: No Medical Necessity Reason Pt with a Central, PICC or Fol: No Subjective Patient reports: Feels better Changes from previous H/P or p: No Changes Objective vital signs Vital Sign Date Time Temp Pulse Resp B/P (MAP) Pulse Ox O2 Delivery O2 Flow Rate FiO2 04/10/24 08:54 100 14 96 Nasal Cannula* 2 28 04/10/24 07:40 108/62 (77) 04/09/24 20:08 98.1 98.1 Total Intake and Output 04/09/24 04/09/24 04/10/24 14:59 22:59 06:59 Intake Total 300 ml Balance 300 ml medications Current Medications Medications Dose Ordered Sig/Cuca Route Start Time Stop Time Status Last Admin Dose Admin Ceftriaxone Sodium 50 ml @ 100 mls/hr DAILY@09 IV 04/10/24 09:00 Azithromycin 250 ml @ 125 mls/hr DAILY IV 04/10/24 10:00 Levalbuterol HCl 0.625 mg Q6HR NEB 04/10/24 00:00 04/10/24 06:22 0.625 MG Ipratropium [place] 0.5 mg Q4HPRN PRN NEB 04/09/24 20:00 04/10/24 06:22 0.5 MG Methylprednisolone Sodium Succinate 40 mg Q8HR IV 04/09/24 22:00 04/10/24 06:00 40 MG Famotidine 20 mg Q12HR IV 04/09/24 22:00 04/09/24 22:00 20 MG Tacrolimus 1 mg BID PO 04/09/24 22:00 Heparin Sodium (Porcine) 5,000 units Q12HR SC 04/09/24 22:00 04/09/24 22:00 5,000 UNITS Sodium Chloride 10 ml Q8HR IV 04/09/24 22:00 04/10/24 06:00 10 ML Acetaminophen/ Hydrocodone Bitart 1 tab Q4HP PRN PO 04/09/24 20:00 Ondansetron HCl 4 mg Q4HP PRN IV 04/09/24 20:00 04/09/24 23:26 4 MG Docusate Sodium 100 mg BIDPRN PRN PO 04/09/24 20:00 Acetaminophen 650 mg Q6HP PRN PO 04/09/24 20:00 Nitroglycerin 0.4 mg Q5MINP PRN SL 04/09/24 22:30 Morphine Sulfate 2 mg Q30M PRN IV 04/09/24 22:30 04/09/24 23:25 2 MG Examination General Appearance: Cooperative. In no acute distress. Tremors present Head Exam: Normal inspection Neck Exam: Normal inspection. Non-tender. Normal alignment Pulmonary/Respiratory: Chest non-tender. Diminished bilateral breath sounds Cardiovascular/Chest: Regular rate and rhythm. S1, S2. NSR. No murmurs. No JVD. Peripheral Pulses: 2+ Radial (R). 2+ Radial (L). 2+ Pedal (R). 2+ Pedal (L) Abdominal Exam: Normal bowel sounds. Soft. Nontender. No hepatospenomegaly. No masses Ankle Exam: Negative ankle edema Lower extremities: Negative lower extremity edema Neuro/Mental Status: A&O x3. Coherent Thoughts/Psych: Normal thought pattern. Appropriate mood and affect. Appearance: In no acute distress Skin Exam: Normal inspection. Normal color. Warm. Dry laboratory and microbiology Laboratory Tests 04/10/24 04:20 Test 04/10/24 04:20 Range/Units Serum Glucose 161 H 74-106 mg/dL Labs and/or images reviewed: Labs reviewed by me, Image(s) reviewed by me Problem List/Assessment/Plan Problem List/Assessment/Plan Hospitalization summary/ Assesment: A 68-year-old female with hyperlipidemia, COPD, lupus, GERD, and a liver transplant presented to the ED with worsening shortness of breath, generalized weakness, and hypoxia (O2 saturation in the 60s). EMS placed her on CPAP en route to the hospital. Lab results showed elevated WBC (29.8), BUN (65), creatinine (2.65), and troponin (588). Chest x- ray revealed bibasilar atelectasis versus infection, cardiomegaly, but no pneumothorax or pleural effusions. She was started on IV azithromycin and admitted for further evaluation and management. She denies smoking, alcohol, or drug use and lives at home. Plan: # pneumonia Gram-positive Gram-negative : Right lower lobe likely: On cefepime, Unasyn, # Sepsis secondary due to above: # Bacteremia: With Gram-positive cocci/ Gram-negative rods. # COPD exacerbation: On levalbuterol, # known COPD likely secondary due to prolonged smoking history # acute on chronic hypoxic respiratory failure # CALVIN on CKD, due to VM in : Nephrology on board, IV hydration continue avoid nephrotoxic, check urinalysis # CKD stage III # type 2 NSTEMI likely demand mediated # nicotine dependence: Active smoker, 11 minute of smoking cessation counseling done. # Dyslipidemia: Home medications # lupus: Likely stable disease # History of liver transplant: secondary immunosuppression with tacrolimus on board. Trough pending. # atelectasis: Incentive spirometry to continue. Diet: cardiac diet GI prophylaxis: protonix 40mg/Famotidine 20/not needed DVT prophylaxis: heparin Bowel regimen: as needed Barriers to discharge: Medical diagnosis and managment in progress. [facility] To Ad[facility]: Cardiology, Nephrology,. Patient care and plan discussed with Dr. Swain Patient is overall unstable, septic and NOT stable for [facility] transfer. Will arrange transfer at earliest when patient is safe. Code status: Full code, goals of care discussion needed total 37 minutes. Plan discussed with: Patient, Other JUDE WATSON RESIDENT Apr 10, 2024 09:31
[2024-04-10] MEDS ORDERED: AZITHROMYCIN 500MG/ 250ML 250 ML IV SCH (10:00)
--- NOTE | 2024-04-10 10:34 | DVHINCON2 ---
Date Seen: Apr 10, 2024 Referring Physician BYRON Singleton Reason for Consultation NSTEMI History of Present Illness This is a 68-year-old female who presented to the emergency room via EMS with a chief complaint of shortness of breath x2 days. At time of assessment, the patient was somewhat a poor historian. Information obtained from records which indicate the patient was found by EMS with an oxygen saturation level of 67% on room air for which she was provided supplemental oxygenation via CPAP and duo- neb treatment with improved O2 saturations to 90%. Denies chest pain, palpitations, diaphoresis, or syncopal events. She underwent a 12-lead electrocardiogram revealing a sinus tachycardia rhythm (read as atrial fibrillation per ECG machine). Initial troponin level was found in the 600s ng/L now trending down. Past medical history includes COPD w/o home O2 and with current tobacco use, lupus, chronic kidney disease, and dyslipidemia. Past Medical History Past medical history reviewed. No other significant than mentioned above. Past Surgical History Liver transplant x2 on 2010 Cholecystectomy Family History Family history reviewed. Social History Denies the use of illicit drugs, alcohol, or tobacco use. Allergies: Coded Allergies: NO KNOWN ALLERGIES (Unverified , 01/22/20) Home Meds Active Scripts Azithromycin (ZITHROMAX TABLET) 250 Mg Tb, 500 MG PO BID for 7 Days, #28 TAB Prov:ALICIA BARRY MD 07/27/23 Home Meds Unable to retrieve home medications. Current Medications Current Medications Medications (Trade) Dose Ordered Sig/Cuca Route PRN Reason Start Time Stop Time Status Last Admin Ceftriaxone Sodium 50 ml @ 100 mls/hr DAILY@09 IV 04/10/24 09:00 Azithromycin 250 ml @ 125 mls/hr DAILY IV 04/10/24 10:00 Levalbuterol HCl (Xopenex Medneb) 0.625 mg Q6HR NEB 04/10/24 00:00 04/10/24 06:22 Ipratropium [place] (Atrovent Medneb) 0.5 mg Q4HPRN PRN NEB SHORTNESS OF BREATH 04/09/24 20:00 04/10/24 06:22 Methylprednisolone Sodium Succinate (Solu Medrol) 40 mg Q8HR IV 04/09/24 22:00 04/10/24 06:00 Famotidine (Pepcid Injection) 20 mg Q12HR IV 04/09/24 22:00 04/09/24 22:00 Tacrolimus (Prograf) 1 mg BID PO 04/09/24 22:00 Heparin Sodium (Porcine) 5,000 units Q12HR SC 04/09/24 22:00 04/09/24 22:00 Sodium Chloride (Saline Lock Ns) 10 ml Q8HR IV 04/09/24 22:00 04/10/24 06:00 Acetaminophen/ Hydrocodone Bitart ([place] 5/325MG Tab) 1 tab Q4HP PRN PO MODERATE PAIN (4-6 PAIN SCALE) 04/09/24 20:00 Ondansetron HCl (Zofran) 4 mg Q4HP PRN IV NAUSEA / VOMITING 04/09/24 20:00 04/09/24 23:26 Docusate Sodium (Colace Capsule) 100 mg BIDPRN PRN PO FOR CONSTIPATION 04/09/24 20:00 Acetaminophen (Tylenol Tablet) 650 mg Q6HP PRN PO PAIN SCALE 1-3 OR TEMP>100.4 04/09/24 20:00 Nitroglycerin (Ntrostat Sublingual) 0.4 mg Q5MINP PRN SL FOR CHEST PAIN 04/09/24 22:30 Morphine Sulfate 2 mg Q30M PRN IV FOR CHEST PAIN 04/09/24 22:30 04/09/24 23:25 Sodium Chloride 1,000 ml @ 75 mls/hr [id number] IV 04/10/24 09:45 Review of Systems Constitutional: No symptom reported Ears, Nose, & Throat: No symptom reported Eyes: No symptom reported Neurological: No symptoms reported Pulmonary/Respiratory: SOB Cardiovascular: No symptom reported Gastrointestinal: No symptom reported Genitourinary: No symptom reported Musculoskeletal: No symptom reported Skin: No symptom reported Psychiatric: No symptom reported Endocrine: No symptom reported Hemotologic/Lymphatic: No symptom reported Vital Signs Vital Signs Date Time Temp Pulse Resp B/P (MAP) Pulse Ox O2 Delivery O2 Flow Rate FiO2 04/10/24 09:56 93 16 95/45 (62) 93 04/10/24 08:54 Nasal Cannula* 2 28 04/09/24 20:08 98.1 98.1 Physical Exam General Appearance: Cooperative. In no acute distress. Tremors present Head Exam: Normal inspection Neck Exam: Normal inspection. Non-tender. Normal alignment Pulmonary/Respiratory: Chest non-tender. Diminished bilateral breath sounds Cardiovascular/Chest: Regular rate and rhythm. S1, S2. NSR. No murmurs. No JVD. Peripheral Pulses: 2+ Radial (R). 2+ Radial (L). 2+ Pedal (R). 2+ Pedal (L) Abdominal Exam: Normal bowel sounds. Soft. Nontender. No hepatospenomegaly. No masses Ankle Exam: Negative ankle edema Lower extremities: Negative lower extremity edema Neuro/Mental Status: A&O x3. Coherent Thoughts/Psych: Normal thought pattern. Appropriate mood and affect. Appearance: In no acute distress Skin Exam: Normal inspection. Normal color. Warm. Dry Labs/Diagnostic Data Labs Test 04/10/24 04:20 04/09/24 17:39 Range/Units White Blood Count 21.6 #H 4.4-10.8 10^3/uL Red Blood Count 4.26 4.0-5.20 10^6/uL Hemoglobin 12.4 12.2-16.2 g/dL Hematocrit 36.3 36.0-46.0 % Mean Corpuscular Volume 85.3 80.0-100.0 fL Mean Corpuscular Hemoglobin 29.1 28.0-32.0 pg Mean Corpuscular Hemoglobin Concent 34.2 32.0-36.0 g/dL Red Cell Distribution Width 13.8 11.8-14.3 % Platelet Count 158 140-450 10^3/uL Mean Platelet Volume 9.6 6.9-10.8 fL Neutrophils (%) (Auto) 37.0-80.0 % Lymphocytes (%) (Auto) 10.0-50.0 % Monocytes (%) (Auto) 0.0-12.0 % Basophils (%) (Auto) 0.0-2.0 % Neutrophils # (Auto) 1.6-8.6 10 ^3/uL Lymphocytes # (Auto) 0.4-5.4 10 ^3/uL Monocytes # (Auto) 0-1.3 10 ^3/uL Differential Total Cells Counted 100.0 100 Neutrophils % (Manual) 74 37.0-80.0 Band Neutrophils % (Manual) 23 Lymphocytes % (Manual) 3 L 10.0-50.0 Monocytes % (Manual) 0 0-12 Eosinophils % (Manual) 0 0-7 Basophils % (Manual) 0 0.0-2.0 Metamyelocytes % (manual) 0 Myelocytes % (Manual) 0 Promyelocytes % (Manual) 0 Blast Cells % (Manual) 0 Reactive Lymphocytes 0 Platelet Estimate Adequate Red Blood Cell Morphology Normal Sodium Level 134 L 136-145 mmol/L Potassium Level 3.6 3.5-5.1 mmol/L Chloride Level 102 98-107 mmol/L Carbon Dioxide Level 22 20-31 mmol/L Anion Gap 10 5-15 Blood Urea Nitrogen 66 H 9-23 mg/dL Creatinine 2.51 H 0.550-1.02 mg/dL Glomerular Filtration Rate Calc 20 >90 mL/min BUN/Creatinine Ratio 26.3 H 10.0-20.0 Serum Glucose 161 H 74-106 mg/dL Calcium Level 10.2 8.7-10.4 mg/dL Total Bilirubin 0.4 0.2-1.0 mg/dL Aspartate Amino Transferase (AST) 36 13-40 U/L Alanine Aminotransferase (ALT) 26 7-40 U/L Alkaline Phosphatase 106 46-116 U/L Troponin I High Sensitivity 367 *H </=34 ng/L Total Protein 6.6 5.7-8.2 g/dL Albumin 3.3 3.2-4.8 g/dL Eosinophils (%) (Auto) 0.0 0.0-7.0 % Eosinophils # (Auto) 0 0-0.8 10 ^3/uL Basophils # (Auto) 0 0-0.2 10 ^3/uL Nucleated Red Blood Cells 0.0 % Lactic Acid Level 1.9 0.4-2.0 mmol/L Magnesium Level 1.7 1.6-2.6 mg/dL B-Type Natriuretic Peptide 236.37 0-100 pg/mL Assessment Sepsis with PNA COPD Exacerbation Acute on chronic hypoxic respiratory failure CALVIN on CKD NSTEMI, likely Type II secondary to above Nicotine dependence Dyslipidemia Lupus Plan/Recommendation (Dr. Kc) Patient presents as an NSTEMI type 2 secondary to sepsis and acute hypoxic respiratory failure. We will continue transthoracic echocardiogram to rule out structural heart disease. In the meantime, continue septic workup/treatment per primary care team as well as Nephrology recommendations. In the setting of an unremarkable echocardiogram, there is no further cardiac workup indicated at this time. Thank you for allowing us to participate in this patient's care. P theodore call if you have any questions or concerns. This medical document was created using an electronic medical record system with voice recognition software and computerized dictation system. Although this document has been carefully reviewed, there might still be some phonetic and typographical errors. Occasional wrong-word or ``sound-alike substitutions may have occurred due to the inherent limitations of voice recognition software. These areas are purely typographical due to imperfections of the software programs and do not reflect any compromise in the patient's medical care. Please read the chart carefully and recognize, using context, where these substitutions have occurred. Plan discussed with: Patient, Other Date of Service: Apr 10, 2024 Billing Provider: PARISH LANDRY MD Cardiology Common Codes: 32658-[id number] INP/OBS CARE (High) ROSANGELA SALCEDO RELAY REPAIRER Apr 10, 2024 10:34
[2024-04-10] MEDS ORDERED: levoFLOXacin 750MG 150 ML IV SCH (10:45)
[2024-04-10 11:25] VITALS: PULSE 98; RESP 16; O2SAT 95
[2024-04-10 11:33] VITALS: PULSE 98; RESP 16; O2SAT 100
[2024-04-10] MEDS: NICOTINE 14 MG/24HR TOPICAL PATCH TD ONE (11:51)
[2024-04-10] MEDS: SODIUM CHLORIDE 0.9% 1,000 ML IV SCH (11:51)
[2024-04-10] MEDS: MAGNESIUM SULFATE 1GM/100ML 100 ML IV ONE (14:15)
[2024-04-10] MEDS: AMPICILLIN & SULBACTAM SODIUM 3 GM in SODIUM CHL 0.9% 100 ML IV SCH (15:00)
[2024-04-10 16:41] LABS: Opiate Scree,Urine Neg (NEGATIVE)
--- NOTE | 2024-04-10 16:42 | DVHINCON2 ---
Date of service: Apr 10, 2024 Referring Physician Romeo Singleton DNP Reason for Consultation Acute respiratory distress, COPD exacerbation, pneumonia History of Present Illness A 68-year-old woman with past medical history of hyperlipidemia, COPD, lupus, GERD, and liver transplant, currently on Prograf, who presented to ED on 04/09/24 with c/o shortness of breath. Patient reported symptoms progressively got worse with generalized weakness, hypoxic with O2 saturation in the 60s, tachypneic, and EMS were called. EMS placed pt on CPAP en route. ED workup showed WBC 29.8, platelets 178, sodium 135, potassium 3.2, BUN 65, creatinine 2.65, GFR 19, glucose 117, lactic acid 1.9, BNP 236.37, troponin 588, albumin 3.1. Vitals were BP 102/63, heart rate 102, temperature 98.1 F, O2 saturation 98% on oxygen . Chest x-ray revealing bibasilar atelectasis versus infection, right greater than left, cardiomegaly, no pneumothorax or pleural effusions. Patient was admitted for further care and pulmonary consultation is requested for evaluation and management due to the above findings. Review of Systems: 14-point review of systems negative unless otherwise noted above. Past Medical History: HLD, COPD, Lupus, and GERD Past Surgical History: Liver transplant Medications: Reviewed. Allergies: No known drug allergies. Family History: No family history of premature CAD. No family history of lung disorders. Social History: Smoker. On NRT. No alcohol or illicit drug use. Allergies: Coded Allergies: NO KNOWN ALLERGIES (Unverified , 01/22/20) Home Meds Active Scripts Azithromycin (ZITHROMAX TABLET) 250 Mg Tb, 500 MG PO BID for 7 Days, #28 TAB Prov:ALICIA BARRY MD 07/27/23 Current Medications Current Medications Medications (Trade) Dose Ordered Sig/Cuca Route PRN Reason Start Time Stop Time Status Last Admin Ceftriaxone Sodium 50 ml @ 100 mls/hr DAILY@09 IV 04/10/24 09:00 04/10/24 10:50 DC Azithromycin 250 ml @ 125 mls/hr DAILY IV 04/10/24 10:00 04/10/24 10:50 DC Levalbuterol HCl (Xopenex Medneb) 0.625 mg Q6HR NEB 04/10/24 00:00 04/10/24 11:25 Ipratropium [place] (Atrovent Medneb) 0.5 mg Q4HPRN PRN NEB SHORTNESS OF BREATH 04/09/24 20:00 04/10/24 11:25 Methylprednisolone Sodium Succinate (Solu Medrol) 40 mg Q8HR IV 04/09/24 22:00 04/10/24 14:17 Famotidine (Pepcid Injection) 20 mg Q12HR IV 04/09/24 22:00 04/10/24 11:50 Tacrolimus (Prograf) 1 mg BID PO 04/09/24 22:00 04/10/24 14:15 Heparin Sodium (Porcine) 5,000 units Q12HR SC 04/09/24 22:00 04/10/24 11:53 Sodium Chloride (Saline Lock Ns) 10 ml Q8HR IV 04/09/24 22:00 04/10/24 14:16 Acetaminophen/ Hydrocodone Bitart ([place] 5/325MG Tab) 1 tab Q4HP PRN PO MODERATE PAIN (4-6 PAIN SCALE) 04/09/24 20:00 Ondansetron HCl (Zofran) 4 mg Q4HP PRN IV NAUSEA / VOMITING 04/09/24 20:00 04/09/24 23:26 Docusate Sodium (Colace Capsule) 100 mg BIDPRN PRN PO FOR CONSTIPATION 04/09/24 20:00 Acetaminophen (Tylenol Tablet) 650 mg Q6HP PRN PO PAIN SCALE 1-3 OR TEMP>100.4 04/09/24 20:00 Nitroglycerin (Ntrostat Sublingual) 0.4 mg Q5MINP PRN SL FOR CHEST PAIN 04/09/24 22:30 Morphine Sulfate 2 mg Q30M PRN IV FOR CHEST PAIN 04/09/24 22:30 04/09/24 23:25 Sodium Chloride 1,000 ml @ 75 mls/hr [id number] IV 04/10/24 09:45 04/10/24 11:51 Nicotine (Nicoderm 14MG/ 24HR) 1 patch DAILY TD 04/11/24 10:00 Ampicillin Sodium/ Sulbactam Sodium 3 gm/Sodium Chloride 100 ml @ 100 mls/hr Q12H IV 04/10/24 10:45 04/10/24 15:00 Levofloxacin/ Dextrose 150 ml @ 100 mls/hr Q48H IV 04/10/24 10:45 UNV Doxycycline Monohydrate (Vibramycin Tablet) 100 mg Q12HR PO 04/10/24 16:15 UNV Cefepime HCl 50 ml @ 12.5 mls/hr DAILY IV 04/10/24 16:15 UNV Vital Signs Vital Signs Date Time Temp Pulse Resp B/P (MAP) Pulse Ox O2 Delivery O2 Flow Rate FiO2 04/10/24 13:56 112/58 (76) 04/10/24 13:23 97 04/10/24 11:33 16 100 04/10/24 11:25 Nasal Cannula* 3 32 04/09/24 20:08 98.1 98.1 Physical Exam Gen.: Patient lying in bed in no apparent distress. On supplemental oxygen. Head: Normocephalic, atraumatic. Eyes: EOMI/PERRLA. Ears: Normal hearing. Normal anatomy. Neck/trachea: Trachea midline, supple. Nose: Normal external anatomy. Mouth: Moist mucous membranes. Chest: Decreased air entry bilaterally. No wheezing or rhonchi. Cardiovascular: Positive S1, positive S2. Regular rate and rhythm. Abdomen: Positive bowel sounds in all 4 quadrants. Soft, non-tender, non- distended. : Deferred. Rectal: Deferred. Skin: Warm, dry. Intact. Extremities: 2+ radial pulses bilaterally. No lower extremity edema. Neuro: Awake, alert, oriented x3. No gross motor or sensory deficits. Cranial nerves II through XII intact. Gait not assessed. Labs/Diagnostic Data Labs Test 04/10/24 16:20 04/10/24 16:09 04/10/24 04:20 04/09/24 17:39 Range/Units White Blood Count 21.6 #H 4.4-10.8 10^3/uL Red Blood Count 4.26 4.0-5.20 10^6/uL Hemoglobin 12.4 12.2-16.2 g/dL Hematocrit 36.3 36.0-46.0 % Mean Corpuscular Volume 85.3 80.0-100.0 fL Mean Corpuscular Hemoglobin 29.1 28.0-32.0 pg Mean Corpuscular Hemoglobin Concent 34.2 32.0-36.0 g/dL Red Cell Distribution Width 13.8 11.8-14.3 % Platelet Count 158 140-450 10^3/uL Mean Platelet Volume 9.6 6.9-10.8 fL Neutrophils (%) (Auto) 37.0-80.0 % Lymphocytes (%) (Auto) 10.0-50.0 % Monocytes (%) (Auto) 0.0-12.0 % Basophils (%) (Auto) 0.0-2.0 % Neutrophils # (Auto) 1.6-8.6 10 ^3/uL Lymphocytes # (Auto) 0.4-5.4 10 ^3/uL Monocytes # (Auto) 0-1.3 10 ^3/uL Differential Total Cells Counted 100.0 100 Neutrophils % (Manual) 74 37.0-80.0 Band Neutrophils % (Manual) 23 Lymphocytes % (Manual) 3 L 10.0-50.0 Monocytes % (Manual) 0 0-12 Eosinophils % (Manual) 0 0-7 Basophils % (Manual) 0 0.0-2.0 Metamyelocytes % (manual) 0 Myelocytes % (Manual) 0 Promyelocytes % (Manual) 0 Blast Cells % (Manual) 0 Reactive Lymphocytes 0 Platelet Estimate Adequate Red Blood Cell Morphology Normal Sodium Level 134 L 136-145 mmol/L Potassium Level 3.6 3.5-5.1 mmol/L Chloride Level 102 98-107 mmol/L Carbon Dioxide Level 22 20-31 mmol/L Anion Gap 10 5-15 Blood Urea Nitrogen 66 H 9-23 mg/dL Creatinine 2.51 H 0.550-1.02 mg/dL Glomerular Filtration Rate Calc 20 >90 mL/min BUN/Creatinine Ratio 26.3 H 10.0-20.0 Serum Glucose 161 H 74-106 mg/dL Calcium Level 10.2 8.7-10.4 mg/dL Total Bilirubin 0.4 0.2-1.0 mg/dL Aspartate Amino Transferase (AST) 36 13-40 U/L Alanine Aminotransferase (ALT) 26 7-40 U/L Alkaline Phosphatase 106 46-116 U/L Troponin I High Sensitivity 367 *H </=34 ng/L Total Protein 6.6 5.7-8.2 g/dL Albumin 3.3 3.2-4.8 g/dL Plasma/Serum Blood Alcohol < 3.0 <10 mg/dL Eosinophils (%) (Auto) 0.0 0.0-7.0 % Eosinophils # (Auto) 0 0-0.8 10 ^3/uL Basophils # (Auto) 0 0-0.2 10 ^3/uL Nucleated Red Blood Cells 0.0 % Lactic Acid Level 1.9 0.4-2.0 mmol/L Magnesium Level 1.7 1.6-2.6 mg/dL B-Type Natriuretic Peptide 236.37 0-100 pg/mL Microbiology Date/Time Source Procedure Growth Status 04/09/24 17:46 Blood Blood Culture - Preliminary Resulted Assessment Impression: Acute respiratory distress COPD exacerbation Pneumonia, likely gram negative AFib with RVR NSTEMI Nicotine dependence Plan: Supplemental oxygen 2 LPM NC Titrate to keep O2 sats above 92%. Taper O2 as tolerated. Continue bronchodilators. Continue antibiotics IV steroids Nicotine replacement therapy Monitor renal function. Monitor electrolytes. Supplement as necessary. Monitor ins and outs. GI prophylaxis - Pepcid DVT prophylaxis - Heparin SC. Prognosis: Poor given patient's multiple co-morbidities. Rest of plan per hospitalist and other consultants. Thank you, BYRON Singleton, for allowing me to participate in this patient's care. Further recommendations will depend on the patient's clinical course. Please do not hesitate to contact me if you have any questions or concerns. This medical document was created using an electronic medical record system with [employer] dictation system. Although these documentations are being carefully reviewed, there may still be some phonetic and typographical changes. The errors are purely typographical, due to imperfection on the software program, and do not reflect any compromise in the patient's medical care. Plan discussed with: Patient, Other (RN/BYRON Singleton/) USMAN GEORGES MD Apr 10, 2024 16:42
[2024-04-10 16:44] LABS: Amphetamine Screen, Urine Neg (NEGATIVE); Barbiturate Scree,Urine Neg (NEGATIVE); Benzodiazephine Screen, Urine Neg (NEGATIVE); Cannabinoid Screen, Urine Neg (NEGATIVE); Cocaine Screen, Urine Neg (NEGATIVE); Phencyclidine Screen, Urine Neg (NEGATIVE); Urine Bacteria FEW /hpf (None Seen); Urine Blood TRACE /uL (Negative); Urine Clarity Turbid (Clear); Urine Color Yellow (Yellow); Urine Hyaline Cast MOD /lpf (0 - 2); Urine Mucus FEW (None Seen); Urine Protein, UAD 1+ (Negative); Urine Specific Gravity 1.017 (1.001-1.035); Urine Squamous Epithelial Cell FEW /hpf (<5); Urine Urobilinogen Normal (Negative); Urine WBC 12 /hpf (0 - 5); Urine pH 5.5 (5.0-9.0)
[2024-04-10 17:05] LABS: COVID19 ANTIGEN SOFIA FIA NEGATIVE (NEGATIVE)
[2024-04-10 17:06] LABS: Rapid Influenza A Negative (Negative); Rapid Influenza B Negative (Negative)
[2024-04-10] MEDS: CEFEPIME 2GM/50ML NS 50 ML IV SCH (18:07)
[2024-04-10] MEDS: DOXYCYCLINE 100 MG TAB/CAP PO SCH (18:08)
[2024-04-10 19:20] VITALS: RESP 18; O2SAT 98
--- NOTE | 2024-04-10 21:49 | DVHSR ---
APPROVED REPORT EXAM: Two-dimensional and M-mode echocardiogram with Doppler and color Doppler. Blood Pressure: 122/56 mmHg INDICATION Elevated BNP RISK FACTORS Height: 5' 2", Weight: 149 DIMENSIONS LVDd4.8 (3.8-5.7cm)LA (2D)4.1 (1.9-4.0cm)Aortic Root2.7 (2.0-3.7cm) LVDs3.7 (2.5-4.0cm)LA (MM) (1.9-4.0cm)Aortic Cusp Exc1.8 (1.5-2.0cm) EF (%) 46.0 (55-70%)Rt. Atrium4.1 (1.9-4.0cm)Asc. Aorta cm IVSd1.2 (0.7-1.1cm)RV (D) (1.8-2.4cm) PWd1.3 (0.7-1.1cm) Mitral Valve MitralMitral Stenosis E wave0.90m/sMV Mean GR.mmHg A wave1.10m/sMV Peak GR.mmHg E/A ratio0.82D MVAcm2 Aortic Valve Aortic ValveAortic Stenosis V11.10m/Wagner Mean GR.6mmHg V21.70m/Wagner Peak GR.12mmHg LVOT Diameter1.9 (1.8-2.4cm)Doppler AVA1.83cm2 Pulmonic Valve V20.70m/s Tricuspid Valve TR Velocity2.70m/s [id number] LEFT VENTRICLE The left ventricle is normal size. There is mild concentric left ventricular hypertrophy. Left ventricular systolic function is normal, LVEF 55%. Mild diastolic dysfunction. Normal wall motion. RIGHT VENTRICLE The right ventricle is normal size. The right ventricular systolic function is normal. ATRIA The left atrium is mildly dilated. The right atrium size is normal. MITRAL VALVE The mitral valve is grossly normal. Mitral regurgitation is trace. PULMONIC VALVE The pulmonic valve is grossly normal in structure and function. There is trace pulmonic valvular regurgitation. TRICUSPID VALVE The tricuspid valve is grossly normal. There is mild tricuspid regurgitation. AORTIC VALVE The aortic valve is trileaflet. No aortic regurgitation is present. GREAT VESSELS The aortic root is normal size. PERICARDIAL EFFUSION Trace to small pericardial effusion. Other Information Quality : Technically LimitedRhythm : Technically limited study due to body habitus. Conclusion The left ventricle is normal size. There is mild concentric left ventricular hypertrophy. Left ventr icular systolic function is normal, LVEF 55%. Mild diastolic dysfunction. Normal wall motion. The right ventricle is normal size. The right ventricular systolic function is normal. The left atrium is mildly dilated. No significant valvular abnormalities. Trace to small pericardial effusion.
[2024-04-11 06:13] VITALS: PULSE 116; RESP 20; O2SAT 92
[2024-04-11 06:24] VITALS: PULSE 105; RESP 16; O2SAT 94
[2024-04-11 08:13] LABS: Chloride 106 mmol/L (98-107); Sodium 138 mmol/L (136-145)
[2024-04-11 08:14] LABS: Anion Gap 12 (5-15); Calcium 10.1 mg/dL (8.7-10.4); Carbon Dioxide 20 mmol/L (20-31)
[2024-04-11 08:15] VITALS: RESP 18; O2SAT 98
[2024-04-11 08:19] LABS: BUN/Creatinine Ratio 38.7 (10.0-20.0)
[2024-04-11 08:23] LABS: Glucose 122 mg/dL (74-106); Potassium 3.1 mmol/L (3.5-5.1)
[2024-04-11 08:26] LABS: Blood Urea Nitrogen 84 mg/dL (9-23)
[2024-04-11 08:29] LABS: Basophils # (auto) 0 10 ^3/uL (0-0.2); Basophils % (auto) 0.1 % (0.0-2.0); Eosinophils # (auto) 0 10 ^3/uL (0-0.8); Hematocrit 39.5 % (36.0-46.0); Hemoglobin 13.4 g/dL (12.2-16.2); Lymphocytes # (auto) 0.4 10 ^3/uL (0.4-5.4); Lymphocytes % (auto) 1.9 % (10.0-50.0); Mean Corpuscular Hemoglobin 29.2 pg (28.0-32.0); Mean Corpuscular Volume 85.7 fL (80.0-100.0); Monocytes # (auto) 0.6 10 ^3/uL (0-1.3); Monocytes % (auto) 3.2 % (0.0-12.0); Neutrophils # (auto) 19.2 10 ^3/uL (1.6-8.6); Neutrophils % (auto) 94.8 % (37.0-80.0); Nucleated Red Blood Cells % 0.1 %; Platelet Count (auto) 220 10^3/uL (140-450); Red Blood Cells 4.61 10^6/uL (4.0-5.20); Red Cell Distribution Width 14.1 % (11.8-14.3); White Blood Cell 20.2 10^3/uL (4.4-10.8)
[2024-04-11] MEDS: NICOTINE 14 MG/24HR TOPICAL PATCH TD SCH (10:00)
[2024-04-11 11:53] VITALS: PULSE 99; RESP 18; O2SAT 96
[2024-04-11 11:59] VITALS: PULSE 98; RESP 18; O2SAT 98
--- NOTE | 2024-04-11 15:54 | DVHPN2 ---
Progress Note Date Seen: Apr 11, 2024 Has the PT tested + for MRSA If YES, has PT been informed?: No Medical Necessity Reason Pt with a Central, PICC or Fol: No Subjective Patient reports: Other Objective vital signs Vital Sign Date Time Temp Pulse Resp B/P (MAP) Pulse Ox O2 Delivery O2 Flow Rate FiO2 04/11/24 15:31 100 138/62 (87) 94 04/11/24 11:59 18 04/10/24 19:20 Nasal Cannula* 2 28 04/09/24 20:08 98.1 98.1 medications Current Medications Medications Dose Ordered Sig/Cuca Route Start Time Stop Time Status Last Admin Dose Admin Levalbuterol HCl 0.625 mg Q6HR NEB 04/10/24 00:00 04/11/24 11:53 0.625 MG Ipratropium [place] 0.5 mg Q4HPRN PRN NEB 04/09/24 20:00 04/11/24 06:12 0.5 MG Methylprednisolone Sodium Succinate 40 mg Q8HR IV 04/09/24 22:00 04/11/24 14:12 40 MG Famotidine 20 mg Q12HR IV 04/09/24 22:00 04/11/24 10:21 20 MG Tacrolimus 1 mg BID PO 04/09/24 22:00 04/10/24 14:15 1 MG Heparin Sodium (Porcine) 5,000 units Q12HR SC 04/09/24 22:00 04/11/24 10:00 5,000 UNITS Sodium Chloride 10 ml Q8HR IV 04/09/24 22:00 04/11/24 14:00 10 ML Acetaminophen/ Hydrocodone Bitart 1 tab Q4HP PRN PO 04/09/24 20:00 Ondansetron HCl 4 mg Q4HP PRN IV 04/09/24 20:00 04/10/24 22:47 4 MG Docusate Sodium 100 mg BIDPRN PRN PO 04/09/24 20:00 Acetaminophen 650 mg Q6HP PRN PO 04/09/24 20:00 Nitroglycerin 0.4 mg Q5MINP PRN SL 04/09/24 22:30 Morphine Sulfate 2 mg Q30M PRN IV 04/09/24 22:30 04/10/24 22:48 2 MG Sodium Chloride 1,000 ml @ 75 mls/hr [id number] IV 04/10/24 09:45 04/11/24 12:25 75 MLS/HR Nicotine 1 patch DAILY TD 04/11/24 10:00 Ampicillin Sodium/ Sulbactam Sodium 3 gm/Sodium Chloride 100 ml @ 100 mls/hr Q12H IV 04/10/24 10:45 04/10/24 22:47 100 MLS/HR Doxycycline Monohydrate 100 mg Q12HR PO 04/10/24 16:15 04/11/24 10:21 100 MG Cefepime HCl 50 ml @ 12.5 mls/hr DAILY IV 04/10/24 16:15 04/11/24 10:21 12.5 MLS/HR laboratory and microbiology Laboratory Tests 04/11/24 07:53 Test 04/11/24 07:53 Range/Units Serum Glucose 122 H 74-106 mg/dL Microbiology Date/Time Source Procedure Growth Status 04/10/24 16:23 Nose MRSA Screen - Final Complete 04/09/24 17:46 Blood Blood Culture - Preliminary Resulted Problem List/Assessment/Plan Problem List/Assessment/Plan Acute kidney injury hemodynamically mediated ckd 3b (GFR 30s in 07/2023) sepsis PNA COPD exacerbation History of liver transplantation on tacrolimus Recommendations Renal function slightly better since admission On IV fluids will Follow Plan discussed with: Patient KELLEN LEIVA MD Apr 11, 2024 15:54
--- NOTE | 2024-04-11 19:43 | DVH ---
NUCLEAR MEDICINE VENTILATION/PERFUSION LUNG SCAN. INDICATION: SOB r/o PULMONARY EMBOLISM COMPARISON: None TECHNIQUE: Following intravenous demonstration of 4.2 millicuries of technetium 99m MAA, and inhalat ion of 5.5 mCi of xenon 133 scintigrams were obtained in multiple projections of the lungs. FINDINGS: There is normal uptake of radionuclide on both the ventilation and perfusion portions of the examinat ion. No mismatched perfusion defects are demonstrated. Uptake is normally homogeneous. IMPRESSION: 1. Low probability for PE.
--- NOTE | 2024-04-11 20:02 | DVHPNRES ---
Progress Note Date Seen: Apr 11, 2024 Resident Creating Document: LUISA GARZA MEHUL Has the PT tested + for MRSA If YES, has PT been informed?: No Medical Necessity Reason Pt with a Central, PICC or Fol: No Subjective Review of Systems A 68-year-old female with hyperlipidemia, COPD, lupus, GERD, and a liver transplant presented to the ED with worsening shortness of breath, generalized weakness, and hypoxia (O2 saturation in the 60s). EMS placed her on CPAP en route to the hospital. Lab results showed elevated WBC (29.8), BUN (65), creatinine (2.65), and troponin (588). Chest x-ray revealed bibasilar atelectasis versus infection, cardiomegaly, but no pneumothorax or pleural effusions. She was started on IV azithromycin and admitted for further evaluation and management. She denies smoking, alcohol, or drug use and lives at home. PMHx: Liver transplant (due to scleroderma, in 2009), COPD, lupus, GERD, CKD, interstitial lung disease, PSHx: Noncontributory Family history: Noncontributing Social history: Patient is independent at baseline status, no oxygen at home, current smoker, denies any other drug use Allergic history: None Contributory Today, patient seen and examined at the bedside. Patient is feeling better since admission , but still complained of shortness of breaths and required oxygen through nasal cannula. Patient reports: No new complaints, Feels better Objective vital signs Vital Sign Date Time Temp Pulse Resp B/P (MAP) Pulse Ox O2 Delivery O2 Flow Rate FiO2 04/11/24 15:31 100 138/62 (87) 94 04/11/24 11:59 18 04/11/24 08:15 Nasal Cannula* 2 28 04/09/24 20:08 98.1 98.1 medications Current Medications Medications Dose Ordered Sig/Cuca Route Start Time Stop Time Status Last Admin Dose Admin Levalbuterol HCl 0.625 mg Q6HR NEB 04/10/24 00:00 04/11/24 11:53 0.625 MG Ipratropium [place] 0.5 mg Q4HPRN PRN NEB 04/09/24 20:00 04/11/24 06:12 0.5 MG Methylprednisolone Sodium Succinate 40 mg Q8HR IV 04/09/24 22:00 04/11/24 14:12 40 MG Famotidine 20 mg Q12HR IV 04/09/24 22:00 04/11/24 10:21 20 MG Tacrolimus 1 mg BID PO 04/09/24 22:00 04/10/24 14:15 1 MG Heparin Sodium (Porcine) 5,000 units Q12HR SC 04/09/24 22:00 04/11/24 10:00 5,000 UNITS Sodium Chloride 10 ml Q8HR IV 04/09/24 22:00 04/11/24 14:00 10 ML Acetaminophen/ Hydrocodone Bitart 1 tab Q4HP PRN PO 04/09/24 20:00 Ondansetron HCl 4 mg Q4HP PRN IV 04/09/24 20:00 04/10/24 22:47 4 MG Docusate Sodium 100 mg BIDPRN PRN PO 04/09/24 20:00 Acetaminophen 650 mg Q6HP PRN PO 04/09/24 20:00 Nitroglycerin 0.4 mg Q5MINP PRN SL 04/09/24 22:30 Morphine Sulfate 2 mg Q30M PRN IV 04/09/24 22:30 04/10/24 22:48 2 MG Sodium Chloride 1,000 ml @ 75 mls/hr [id number] IV 04/10/24 09:45 04/11/24 12:25 75 MLS/HR Nicotine 1 patch DAILY TD 04/11/24 10:00 Ampicillin Sodium/ Sulbactam Sodium 3 gm/Sodium Chloride 100 ml @ 100 mls/hr Q12H IV 04/10/24 10:45 04/10/24 22:47 100 MLS/HR Doxycycline Monohydrate 100 mg Q12HR PO 04/10/24 16:15 04/11/24 10:21 100 MG Cefepime HCl 50 ml @ 12.5 mls/hr DAILY IV 04/10/24 16:15 04/11/24 10:21 12.5 MLS/HR Examination General Appearance: Alert, Oriented X3, Cooperative, No acute distress HEENT: Atraumatic, PERRLA, EOMI, Mucous membrane moist/pink Respiratory: Bilateral rhonchi Cardiovascular: Regular rate, Normal S1, Normal S2, No murmurs, no chest wall tenderness Abdominal: Normal bowel sounds, Soft, No tenderness, No hepatospenomegaly, No masses Extremities: No clubbing, No cyanosis, No edema, Normal pulses, No tenderness/swelling Skin: No rashes, No breakdown, No significant lesion Neuro: Normal gait, Normal speech, Strength at 5/5 X4 ext, Normal tone, Sensation intact, Cranial nerves 3-12 NL, Reflexes 2+ Psych/Mental Status: Mental status NL, Mood NL laboratory and microbiology Laboratory Tests 04/11/24 07:53 Test 04/11/24 07:53 Range/Units Serum Glucose 122 H 74-106 mg/dL Microbiology Date/Time Source Procedure Growth Status 04/10/24 16:23 Nose MRSA Screen - Final Complete 04/09/24 17:46 Blood Blood Culture - Preliminary Resulted Labs and/or images reviewed: Labs reviewed by me, Image(s) reviewed by me Problem List/Assessment/Plan Problem List/Assessment/Plan # pneumonia Gram-positive Gram-negative : Right lower lobe likely: On cefepime, doxycycline # Sepsis secondary due to above: # Bacteremia: With Gram-positive cocci/ Gram-negative rods. # COPD exacerbation: On levalbuterol, # known COPD likely secondary due to prolonged smoking history # acute on chronic hypoxic respiratory failure likely due to COPD exacerbation # CALVIN on CKD, due to VM in : Nephrology on board, IV hydration continue avoid nephrotoxic, check urinalysis # CKD stage III # type 2 NSTEMI likely demand mediated, Cardiology on the board, recommended medical management # nicotine dependence: Active smoker, 11 minute of smoking cessation counseling done. # Dyslipidemia: Home medications # lupus: Likely stable disease # History of liver transplant: secondary immunosuppression with tacrolimus on board. Trough pending. # atelectasis: Incentive spirometry to continue. # hypokalemia, supplemented DIET: Cardiac diet DVT PROPHYLAXIS: Heparin 5000 units b.i.d. GI PROPHYLAXIS:: Famotidine BOWEL REGIMEN: Colace as needed CODE STATUS: Code status discussed with the patient and the daughter at the bedside for more than 27 minute, full code DISPOSITION: Telemetry Patient's status discussed with the patient and daughter at the bedside. Patient is still complained of shortness of breaths, and oxygen through nasal cannula. Patient can be transferred to the [place], briefcase sewer has been consulted. Case discussed with Dr. Swain Plan discussed with: Patient, Other (RN) My Orders My Orders Orders - HEWALUISA BETANCOURT Procedure Category Date Status Time * Etl Programmer CONS 04/11/24 Transmitted Consult LUISA GARZA Apr 11, 2024 20:02
[2024-04-11 22:26] VITALS: BP 130/74; PULSE 72; RESP 18; TEMP 97.8; O2SAT 94
--- NOTE | 2024-04-11 22:48 | DVHPN2 ---
Progress Note - Dictate Date Seen: Apr 11, 2024 Has the PT tested + for MRSA If YES, has PT been informed?: No Medical Necessity Reason Pt with a Central, PICC or Fol: No Subjective Patient seen and examined at bedside. Remains on supplemental oxygen Overnight events reviewed. vital signs Vital Sign Date Time Temp Pulse Resp B/P (MAP) Pulse Ox O2 Delivery O2 Flow Rate FiO2 04/11/24 22:26 97.8 72 18 94 04/11/24 20:00 139/81 (100) 04/11/24 19:20 Nasal Cannula* 2 28 medications Current Medications Medications Dose Ordered Sig/Cuca Route Start Time Stop Time Status Last Admin Dose Admin Levalbuterol HCl 0.625 mg Q6HR NEB 04/10/24 00:00 04/11/24 11:53 0.625 MG Ipratropium [place] 0.5 mg Q4HPRN PRN NEB 04/09/24 20:00 04/11/24 06:12 0.5 MG Methylprednisolone Sodium Succinate 40 mg Q8HR IV 04/09/24 22:00 04/11/24 14:12 40 MG Famotidine 20 mg Q12HR IV 04/09/24 22:00 04/11/24 10:21 20 MG Tacrolimus 1 mg BID PO 04/09/24 22:00 04/10/24 14:15 1 MG Heparin Sodium (Porcine) 5,000 units Q12HR SC 04/09/24 22:00 04/11/24 10:00 5,000 UNITS Sodium Chloride 10 ml Q8HR IV 04/09/24 22:00 04/11/24 14:00 10 ML Acetaminophen/ Hydrocodone Bitart 1 tab Q4HP PRN PO 04/09/24 20:00 Ondansetron HCl 4 mg Q4HP PRN IV 04/09/24 20:00 04/10/24 22:47 4 MG Docusate Sodium 100 mg BIDPRN PRN PO 04/09/24 20:00 Acetaminophen 650 mg Q6HP PRN PO 04/09/24 20:00 Nitroglycerin 0.4 mg Q5MINP PRN SL 04/09/24 22:30 Morphine Sulfate 2 mg Q30M PRN IV 04/09/24 22:30 04/10/24 22:48 2 MG Sodium Chloride 1,000 ml @ 75 mls/hr [id number] IV 04/10/24 09:45 04/11/24 12:25 75 MLS/HR Nicotine 1 patch DAILY TD 04/11/24 10:00 Ampicillin Sodium/ Sulbactam Sodium 3 gm/Sodium Chloride 100 ml @ 100 mls/hr Q12H IV 04/10/24 10:45 04/10/24 22:47 100 MLS/HR Doxycycline Monohydrate 100 mg Q12HR PO 04/10/24 16:15 04/11/24 10:21 100 MG Cefepime HCl 50 ml @ 12.5 mls/hr DAILY IV 04/10/24 16:15 04/11/24 10:21 12.5 MLS/HR objective Gen.: Patient lying in bed in no apparent distress. On supplemental oxygen. Head: Normocephalic, atraumatic. Eyes: EOMI/PERRLA. Ears: Normal hearing. Normal anatomy. Neck/trachea: Trachea midline, supple. Nose: Normal external anatomy. Mouth: Moist mucous membranes. Chest: Decreased air entry bilaterally. No wheezing or rhonchi. Cardiovascular: Positive S1, positive S2. Regular rate and rhythm. Abdomen: Positive bowel sounds in all 4 quadrants. Soft, non-tender, non- distended. : Deferred. Rectal: Deferred. Skin: Warm, dry. Intact. Extremities: 2+ radial pulses bilaterally. No lower extremity edema. Neuro: Awake, alert, oriented x3. No gross motor or sensory deficits. Cranial nerves II through XII intact. Gait not assessed. laboratory and microbiology Laboratory Tests 04/11/24 07:53 Test 04/11/24 07:53 Range/Units Serum Glucose 122 H 74-106 mg/dL Assessment/Plan Impression: Acute respiratory distress COPD exacerbation Pneumonia, likely gram negative AFib with RVR NSTEMI Nicotine dependence Events: Remains on supplemental oxygen, 4 LPM NC Taper O2 as tolerated Continue bronchodilators Continue steroids Continue antibiotics Labs and imaging reviewed. Rest of plan as noted below. Plan: Supplemental oxygen Titrate to keep O2 sats above 92%. Continue bronchodilators. Continue antibiotics IV steroids Nicotine replacement therapy Monitor renal function. Monitor electrolytes. Supplement as necessary. Monitor ins and outs. GI prophylaxis - Pepcid DVT prophylaxis - Heparin SC. Prognosis: Poor given patient's multiple co-morbidities. Rest of plan per hospitalist and other consultants. Thank you, BYRON Singleton, for allowing me to participate in this patient's care. Further recommendations will depend on the patient's clinical course. Please do not hesitate to contact me if you have any questions or concerns. This medical document was created using an electronic medical record system with [employer] dictation system. Although these documentations are being carefully reviewed, there may still be some phonetic and typographical changes. The errors are purely typographical, due to imperfection on the software program, and do not reflect any compromise in the patient's medical care. Plan discussed with: Patient, Other (RN) USMAN GEORGES MD Apr 11, 2024 22:48
[2024-04-11] MEDS ORDERED: LEVALBUTEROL HCL 1.25 MG/3 ML NEB ONE (23:59)
[2024-04-12 01:14] VITALS: PULSE 74; RESP 18; O2SAT 96
--- NOTE | 2024-04-12 19:55 | DVHDSRES ---
Discharge Summary Date of Admission Resident Creating Document: LUISA GARZA RESDIENT Apr 09, 2024 at 22:28 Date of Discharge: Apr 11, 2024 Admitting Diagnosis COPD with acute exacerbation Labs/Diagnostic Data: Laboratory Results Test 04/11/24 07:53 04/10/24 16:20 04/10/24 16:09 04/10/24 04:20 White Blood Count 20.2 10^3/uL (4.4-10.8) Red Blood Count 4.61 10^6/uL (4.0-5.20) Hemoglobin 13.4 g/dL (12.2-16.2) Hematocrit 39.5 % (36.0-46.0) Mean Corpuscular Volume 85.7 fL (80.0-100.0) Mean Corpuscular Hemoglobin 29.2 pg (28.0-32.0) Mean Corpuscular Hemoglobin Concent 34.0 g/dL (32.0-36.0) Red Cell Distribution Width 14.1 % (11.8-14.3) Platelet Count 220 10^3/uL (140-450) Mean Platelet Volume 9.8 fL (6.9-10.8) Neutrophils (%) (Auto) 94.8 % (37.0-80.0) Lymphocytes (%) (Auto) 1.9 % (10.0-50.0) Monocytes (%) (Auto) 3.2 % (0.0-12.0) Eosinophils (%) (Auto) 0.0 % (0.0-7.0) Basophils (%) (Auto) 0.1 % (0.0-2.0) Neutrophils # (Auto) 19.2 10 ^3/uL (1.6-8.6) Lymphocytes # (Auto) 0.4 10 ^3/uL (0.4-5.4) Monocytes # (Auto) 0.6 10 ^3/uL (0-1.3) Eosinophils # (Auto) 0 10 ^3/uL (0-0.8) Basophils # (Auto) 0 10 ^3/uL (0-0.2) Nucleated Red Blood Cells 0.1 % Sodium Level 138 mmol/L (136-145) Potassium Level 3.1 mmol/L (3.5-5.1) Chloride Level 106 mmol/L (98-107) Carbon Dioxide Level 20 mmol/L (20-31) Anion Gap 12 (5-15) Blood Urea Nitrogen 84 mg/dL (9-23) Creatinine 2.17 mg/dL (0.550-1.02) Glomerular Filtration Rate Calc 24 mL/min (>90) BUN/Creatinine Ratio 38.7 (10.0-20.0) Serum Glucose 122 mg/dL (74-106) Calcium Level 10.1 mg/dL (8.7-10.4) Influenza Type A Antigen Negative (Negative) Influenza Type B Antigen Negative (Negative) SARS-CoV-2 Antigen (Rapid) Negative (NEGATIVE) Urine Color Yellow (Yellow) Urine Clarity Turbid (Clear) Urine pH 5.5 (5.0-9.0) Urine Specific [place] 1.017 (1.001-1.035) Urine Protein 1+ (Negative) Urine Ketones Negative (Negative) Urine Blood Trace /uL (Negative) Urine Nitrite Negative (Negative) Urine Bilirubin Negative (Negative) Urine Urobilinogen Normal mg/dL (Negative) Urine Leukocyte Esterase Trace /uL (Negative) Urine RBC 3 /hpf (0 - 4) Urine WBC 12 /hpf (0 - 5) Urine Squamous Epithelial Cells Few /hpf (<5) Urine Bacteria Few /hpf (None Seen) Urine Hyaline Casts Mod /lpf (0 - 2) Urine Mucus Few (None Seen) Urine Glucose Normal mg/dL (Normal) Urine Opiates Screen Neg (NEGATIVE) Urine Fentanyl Screen Neg (NEGATIVE) Urine Barbiturates Screen Neg (NEGATIVE) Urine Phencyclidine Screen Neg (NEGATIVE) Urine Amphetamines Screen Neg (NEGATIVE) Urine Benzodiazepines Screen Neg (NEGATIVE) Urine Cocaine Screen Neg (NEGATIVE) Urine Cannabinoids Screen Neg (NEGATIVE) Differential Total Cells Counted 100.0 (100) Neutrophils % (Manual) 74 (37.0-80.0) Band Neutrophils % (Manual) 23 Lymphocytes % (Manual) 3 (10.0-50.0) Monocytes % (Manual) 0 (0-12) Eosinophils % (Manual) 0 (0-7) Basophils % (Manual) 0 (0.0-2.0) Metamyelocytes % (manual) 0 Myelocytes % (Manual) 0 Promyelocytes % (Manual) 0 Blast Cells % (Manual) 0 Reactive Lymphocytes 0 Platelet Estimate Adequate Red Blood Cell Morphology Normal Total Bilirubin 0.4 mg/dL (0.2-1.0) Aspartate Amino Transferase (AST) 36 U/L (13-40) Alanine Aminotransferase (ALT) 26 U/L (7-40) Alkaline Phosphatase 106 U/L (46-116) Troponin I High Sensitivity 367 ng/L (</=34) Total Protein 6.6 g/dL (5.7-8.2) Albumin 3.3 g/dL (3.2-4.8) Plasma/Serum Blood Alcohol < 3.0 mg/dL (<10) Test 04/09/24 17:39 Lactic Acid Level 1.9 mmol/L (0.4-2.0) Magnesium Level 1.7 mg/dL (1.6-2.6) B-Type Natriuretic Peptide 236.37 pg/mL (0-100) Other Laboratory Tests 04/11/24 07:53 Brief Hx & Hospital Course: A 68-year-old female with hyperlipidemia, COPD, lupus, GERD, and a liver transplant presented to the ED with worsening shortness of breath, generalized weakness, and hypoxia (O2 saturation in the 60s). EMS placed her on CPAP en route to the hospital. Lab results showed elevated WBC (29.8), BUN (65), creatinine (2.65), and troponin (588). Chest x-ray revealed bibasilar atelectasis versus infection, cardiomegaly, but no pneumothorax or pleural effusions. She was started on IV azithromycin and admitted for further evaluation and management. She denies smoking, alcohol, or drug use and lives at home. 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 Her past surgical history is noncontributory, and her family history is noncontributing. Socially, she is independent at baseline status, does not use oxygen at home, is a current smoker, and denies any other drug use. Her allergic history is noncontributory. Hospital course: Chest x-ray showed hyperinflated lung with bilateral lower zone frustration and cardiomegaly. Patient was put on acute hypoxic respiratory failure due to COPD exacerbation. The patient was given empiric antibiotics including doxycycline and cefepime, nebulized with the albuterol and ipratropium, and oxygen was given through nasal cannula. The patient also had acute on CKD grade 3, NSTEMI type 2, and Nephrology and Cardiology was consulted which recommended conservative management. Home medication for the lupus, liver Transplant and hyperlipidemia we continued during hospital course. On 04/11/2024, the patient was feeling better since admission. Transfer planned to the [place] discussed with the patient and the patient was transferred to the [place]. 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 hypokalemia Hyponatremia Moderate protein malnutrition UTI, unspecified location History of atrial fibrillation with a RVR Discharge Disposition: Acute Care Facility Discharge Instruct/Medications Diet: Cardiac 2g Na,low cholest Activity: No Restrictions, As Tolerated Discharge Statement: "Patient was advised to return to the ER or call 911 if any headaches, dizziness, shortness of breath, chest pain, abdominal pain, bleeding, fevers, or worsening of medical condition. Patient was counseled about treatment plan, medications, possible side effects, patientverbalized understanding. All questions were answered to the best of my ability. This discharge took greater then 30 minutes in planning, reviewing documentation, counseling the patient, and discussing with other team members." ASSESSMENT ASSESSMENT Assessment # pneumonia Gram-positive /Gram-negative # Sepsis secondary due to above # Bacteremia: With Gram-positive cocci/ Gram-negative rods. # COPD exacerbation # acute on chronic hypoxic respiratory failure likely due to COPD exacerbation # CALVIN on CKD, due to VMN # CKD stage III # type 2 NSTEMI # nicotine dependence # Dyslipidemia # Lupus # History of liver transplant # Atelectasis # hypokalemia LUISA GARZA Apr 12, 2024 19:55
== END 2024-04-11 23:00 | disposition short-term general hospital (02) | DRG 871 ==
LOC: EDBD 17:09 → ER 17:09 → EDUNIT# 17:09 → TELE 22:28 → OVERFLOW 04-11 14:06 → TELE 04-11 14:08 → TELE-CENTR 04-11 20:50
PROVIDERS: ADMIT Student in an Organized Health Care Education/Training Program; ATTEND Student in an Organized Health Care Education/Training Program
DX: A41.59 Other Gram-negative sepsis (principal); I21.A1 Myocardial infarction type 2; J96.21 Acute and chronic respiratory failure with hypoxia; J96.22 Acute and chronic respiratory failure with hypercapnia; J15.69 Pneumonia due to other Gram-negative bacteria; J15.9 Unspecified bacterial pneumonia; N17.0 Acute kidney failure with tubular necrosis; J44.0 Chronic obstructive pulmonary disease with (acute) lower respiratory infection; J44.1 Chronic obstructive pulmonary disease with (acute) exacerbation; Z94.4 Liver transplant status; E44.0 Moderate protein-calorie malnutrition; E87.1 Hypo-osmolality and hyponatremia; N39.0 Urinary tract infection, site not specified; E78.5 Hyperlipidemia, unspecified; F17.200 Nicotine dependence, unspecified, uncomplicated; I48.91 Unspecified atrial fibrillation; N18.32 Chronic kidney disease, stage 3b; K21.9 Gastro-esophageal reflux disease without esophagitis; M32.9 Systemic lupus erythematosus, unspecified; E87.6 Hypokalemia; Z71.6 Tobacco abuse counseling; Z79.60 Long term (current) use of unspecified immunomodulators and immunosuppressants; Z99.81 Dependence on supplemental oxygen; Z68.27 Body mass index [BMI] 27.0-27.9, adult; Z90.49 Acquired absence of other specified parts of digestive tract; Z79.899 Other long term (current) drug therapy
CPT/HCPCS: 36415; 71045; 78582; 80048; 80053; 80197; 80307; 80320; 81001; 83605; 83735; 83880; 84484; 85007; 85025; 85027; 87040; 87081; 87426; 87804; 93005; 93306; 94640; G0378; J0692; J2405; J3490; J7507